=== PATIENT | female | born 1980 | race Caucasian/White ===

== ENCOUNTER 2018-02-26 11:12 | Outpatient (CLI) | payer MEDICAID, SELFPAY ==
--- NOTE | 2018-02-26 09:44 | DI.RAD_ITS ---
SYMPTOM/DIAGNOSIS: COUGH R05 CHEST X-RAY: PA and lateral. Comparison 04/15/16 The heart is normal in size. The lungs are clear. The mediastinal structures and pleura appear intact. CONCLUSION: Normal chest.
== END 2018-02-26 11:32 ==
PROVIDERS: PCP Family Medicine; Visit Provider Nurse Practitioner Family
DX: R05 Cough (principal)
CPT/HCPCS: 71046

== ENCOUNTER 2018-03-06 01:37 | Outpatient (CLI) | payer MEDICAID, SELFPAY ==
--- NOTE | 2018-03-06 09:10 | DI.CT_ITS ---
SYMPTOM/DIAGNOSIS: RLQ ABD PAIN, ? STONE, R10.[address]: Scarring or atelectasis is seen in the lung bases. Lack of IV contrast does limit evaluation of the abdominal and pelvic organs. There is diffuse decreased attenuation of the liver consistent with fatty infiltration. The patient is status post cholecystectomy. No biliary ductal dilatation is present. The unenhanced pancreas, spleen and adrenal glands are unremarkable. The kidneys show no evidence of nephrolithiasis or hydronephrosis. The urinary bladder is intact. The reproductive organs are unremarkable. There is mild atherosclerosis of the abdominal aorta but no aneurysmal dilatation is present. No significant abdominal or pelvic adenopathy , ascites or pneumoperitoneum is seen. The bowel shows no evidence of obstruction or inflammation. No findings to suggest an acute appendicitis are present. Mild age appropriate degenerative changes are seen in the spine. IMPRESSION: 1. No evidence of nephrolithiasis or obstructive uropathy. 2. Hepatic steatosis. 3. Status post cholecystectomy.
== END 2018-03-06 01:57 ==
PROVIDERS: PCP Family Medicine; Visit Provider Nurse Practitioner Family
DX: R10.31 Right lower quadrant pain (principal); K76.0 Fatty (change of) liver, not elsewhere classified; Z90.49 Acquired absence of other specified parts of digestive tract
CPT/HCPCS: 74176

== ENCOUNTER 2018-05-10 10:26 | Outpatient (REF) | payer MEDICAID, SELFPAY ==
[2018-05-10 12:36] LABS: HCT 42.1 % (36.0-46.0); HGB 13.2 g/dL (12.0-15.5); Mean Corp. HGB Concentration 31.4 g/dL (32.0-36.0); Mean Corpuscular Hemoglobin 26.2 pg (27.0-33.0); Mean Corpuscular Volume 83.5 fL (80-95); Mean Platelet Volume 13.3 fL (8.0-11.0); Platelet Count 282 x1000/uL (130-400); RBC 5.04 m/cumm (4.00-5.20); RBC Distribution Width 14.6 % (11.7-14.6); White Blood Cell Count 10.93 k/cumm (4.4-10.8)
[2018-05-10 12:56] LABS: TSH (W/Ref FT4) 1.87 uIU/mL (0.358-3.74)
[2018-05-10 14:09] LABS: Hemoglobin A1C 6.6 % (4.5-6.2)
== END 2018-05-10 10:46 ==
LOC: NCHCN 10:26
PROVIDERS: PCP Family Medicine; Visit Provider Family Medicine
DX: R73.03 Prediabetes (principal); R63.5 Abnormal weight gain; R53.83 Other fatigue
CPT/HCPCS: 85027; 83036; 84443

== ENCOUNTER 2018-05-10 13:02 | Emergency (ER) | payer MEDICAID, SELFPAY ==
[2018-05-10] VITALS (27 sets, daily range): BP systolic 128–158; BP diastolic 69–103; PULSE 79–116; RESP 12–23; TEMP 36.7; O2SAT 90–97
--- NOTE | 2018-05-10 13:22 | ED.GENADUL_ITS ---
Discharge Plan Disposition Patient Disposition: HOME Condition: Good Discharge Details Chief Complaint: Chest Pain Clinical Impression: Migraine, Hypertension Reason For Visit: [place]ET[place] Primary Care Provider: Irma Caldwell ED Provider: Chandu Urbina Home Meds and New Rx's Prescriptions: No Action ProAir HFA 200 PUFF HFA aerosol inhaler 2 puff Inhalation Q4H PRN PRNQty: 1 RF: 0 inhalational spacing device [AeroChamber Plus Z Stat Sm Msk] 1 EACH spacer 1 ea Miscellaneous Q4H PRN PRNQty: 1 RF: 0 Eliquis 5 mg Tablet 5 mg PO BID RF: 0 metformin 500 mg Tablet 500 mg PO BID RF: 0 sertraline 50 mg Tablet 50 mg PO DAILY RF: 0 Discharge Instructions Instructions: Hypertension (ED) Additional Instructions: Please take your antihypertensive medication as directed. If you notice any worsening of your symptoms, or any new symptoms such as vomiting, diarrhea, fever, chills, shortness of breath, chest pain, numbness, weakness, or fainting , please return immediately to the emergency department for reevaluation. Please follow up with your primary care provider as soon as possible for reassessment and reevaluation. As always, it was a pleasure participating in your medical care today. Referrals: Irma Caldwell MD [Primary Care Provider] - Medical Decision Making This is a 37-year-old female with a past medical history of pulmonary embolism after who takes Eliquis, as well as hypertension that she has not yet been started on blood pressure medication for. She presents today for headache, which is not the worst headache of her life. She denies any red flags concerning for meningitis, intracranial aneurysm. No thunderclap component, no concerning historical or family history, no neck pain or neck stiffness. With clinical symptoms that are inconsistent with ruptured intracranial aneurysm. She has normal neurologic exam as well. She was moderately hypertensive at her PCP, and on EMS arrival. She was given nitroglycerin which improved her subsequent chest pain, but did not resolve her headache. Because of the patient's history there is concern for repeat or worsening pulmonary embolism. With the patient's persistent cough differential does include pneumonia or bronchitis as well. This may be stress or anxiety related, however cardiac is also in the differential. Feel that this is a lower likelihood with her young age, she does have risk factors of hypertension diabetes and obesity. We will perform a cardiac workup, evaluate for PE, treat her headache, and treat her blood pressure. 3 PM On reassessment after 10mg of labetolol the patient's blood pressure has normalized, her headache is completely resolved, and she still remains chest pain-free. Vital signs are certainly reassuring. I feel that the patient's chest pain is most likely blood pressure related and less likely cardiac related. Out of an abundance of precaution though we will still get a repeat troponin and a repeat EKG. 5:23 PM Patient's repeat troponin is normal, repeat EKG is benign with no abnormalities compared to prior. No evidence of STEMI or ST depressions. Patient's symptoms still remain completely resolved and she feels much better. CT angios negative for any evidence of pulmonary embolism. No signs of abnormality on CT scan. Blood pressure is normalized with a single dose of labetalol. Headache is compl etely resolved after migraine cocktail. I did discuss the patient potential observation and serial troponins versus discharge and the patient is requesting discharge. I feel that cardiac etiology is extremely unlikely given her age, heart score in the low risk category, and her symptoms clinically inconsistent with ACS. I feel her symptoms are mainly related to blood pressure and migraine headache. Discharge patient will be discharged home with close follow-up with her PCP. She has antihypertensives prescribed already and they are filled in the pharmacy. I have extensively reviewed the treatment plan and discharge instructions with the patient and their family. I have addressed all patient concerns at this time. The patient and family was made aware of what symptoms to monitor for that would warrant a return to the emergency department. Discussed the plan with the patient and family, they demonstrate verbal understanding and agreement with our assessment and plan at this time. CT SCAN OF THE CHEST: CT angiography was performed with multi slice acquisition and multi planar and 3D reconstruction. CT scan of the chest was performed according to the pulmonary embolus protocol. The thoracic aorta is of normal caliber. No evidence of dissection or aneurysm is seen. There is no evidence of a pulmonary embolus. The heart size is within normal limits. No significant pericardial effusion is seen. No evidence of right ventricular dysfunction is present. No mediastinal or hilar adenopathy, pleural effusion or pneumothorax is identified. No focal consolidating infiltra ibis are seen in the lungs. The tracheobronchial tree is unremarkable. Upper abdominal images show diffuse decreased attenuation of the liver consistent with fatty infiltration. No acute osseous abnormality is identified. IMPRESSION: No evidence of a pulmonary embolus, thoracic aortic dissection or aneurysm. EKG 13: 12 Rate 100, intervals normal, sinus rhythm, no ST elevations or depressions, inverted T wave in V1 and lead III, Q waves present in lead III as well. No other significant abnormalities. EKG 17: 05 Rate 106, sinus tachycardia, intervals normal, no significant ST elevations or depressions, inverted T waves in V1, small Q wave in lead III with an inverted T wave in lead III. No other abnormalities. No acute changes. HPI General Date/Time Provider Initiated Documentation: 05/10/18 13:16 . HPI Narrative: This is a 37-year-old female with past medical history of tubal ligation, hypertension, diabetes, asthma pulmonary embolism after , unmedicated hypertension, asthma, who presents today for evaluation of hypertension, headache, chest pain some shortness of breath. Patient states that early this morning she woke up with a mild headache, which throughout the day has gradually worsened. She did check her blood pressure this morning and noticed that it was elevated. She went to see her family doctor later in the day, where they were actually going to stop her Eliquis for her PE that she had 6 months ago, and add lisinopril for control of her blood pressure. While there she developed chest pain, mild shortness of breath, slight worsening of the headache. Because of the symptoms the patient was then brought by EMS to the emergency department for further evaluation. She was given aspirin and nitroglycerin by EMS and had mild to complete improvement of her chest pain. Blood pressure somewhat improved after administration of nitroglycerin as well. Also of note the patient does state that she has had a persistent cough for the last few months with occasional productive sputum, however she denies any hemoptysis. In regards to the patient's headache she describes it is moderate and achy, over her entire head, she denies any eye pain, vision changes, or neck pain. The patient denies any history of cardiac disease, family history of cardiac disease, tobacco abuse, or high cholesterol. The patient denies any headache red flags of worst headache of life, thunderclap headache, neck pain, fever, chills, concerning family history of polycystic kidney disease, Marfan syndrome, Abimbola-Danlos syndrome, abdominal aortic aneurysm, aortic dissection, or intracranial aneurysm. Patient states that she has been taking her Eliquis as directed. She denies any recent long trips or surgeries. Patient states that today's symptoms feel atypical from her initial symptoms when she had a pulmonary embolism. No other complaints or modifying factors at this time. Related Data Home Medications Medication Instructions Recorded Confirmed ProAir HFA 2 puff INHALATION Q4H PRN PRN #1 04/15/16 05/10/18 inh inhalational spacing device #1 spacer 04/15/16 [Aerochamber Z-Stat Plus] apixaban [Eliquis] 5 mg PO BID 05/10/18 05/10/18 metformin 500 mg PO BID 05/10/18 05/10/18 sertraline 50 mg PO DAILY 05/10/18 05/10/18 Previous Rx's Medication Instructions Recorded ProAir HFA 2 puff INHALATION Q4H PRN PRN #1 04/15/16 inh inhalational spacing device #1 spacer 04/15/16 [Aerochamber Z-Stat Plus] Allergies Allergy/AdvReac Type Severity Reaction Status Date / Time No Known Allergies Allergy Unverified 05/10/18 13:20 General Stated Complaint: Chest Pain HEIDI: 2 Review of Systems Review of Systems All systems reviewed & are unremarkable except as noted in HPI and below PFSH Social History Smoking and Tabacco status: Never Exam Narrative Exam Narrative: 1.Const: Well-nourished, Well-developed, appearing stated age 2.Eyes: PERRL, no conjunctival injection, and symmetrical lids. 3.ENT: Atraumatic external nose and ears. Moist MM. Neck: Symmetric, trachea midline, No thyromegaly. Patient demonstrates good movement of cervical neck. There is no nuchal rigidity, no nuchal tenderness. Patient is able to flex the neck without any difficulty or significant pain. Negative Kernig's and Brudzinski sign. 4.CVS: +S1/S2, No murmurs or gallops. Peripheral pulses 2+ and equal in all extremities. Brisk capillary refill in all extremities. 5.RESP: Unlabored respiratory effort. Clear to auscultation bilaterally. No wheezes rales or rhonchi 6.GI: Soft, Nontender/Nondistended, No hepatosplenomegaly. No guarding or rebound. 7.MSK: Normocephalic/Atraumatic, Extremities w/o deformity or ttp No cyanosis or clubbing, Normal movement of all extremities, no calf tenderness. 8.Skin: Warm, Dry. No rashes or lesions. 9.Neuro: radiologist physician II-XII grossly intact. Sensation grossly intact, no focal neurologic deficits. All 6 cardinal planes of vision are fully intact. No evidence of rotatory or vertical nystagmus. The patient demonstrated a normal [id number], good dexterity. There was no evidence of dysdiadochokinesia. Patient was able to ambulate without difficulty. There was no wide-based gait. Romberg, and nuyl-lb-phqy are both normal on testing. Sensation was intact bilaterally as well as muscle strength bilaterally for all extremities. Patient was able to verbalize butter cup with no slurring, or miss pronunciation. 10.Psych: (AAO) x3. Appropriate mood and affect Course Vital Signs Temperature 36.7 C 05/10/18 13:06 Pulse 109 H 05/10/18 13:06 Respiratory Rate 18 05/10/18 13:06 Blood Pressure 158/103 H 05/10/18 13:06 Pulse Oximetry 95 05/10/18 13:06 Temperature 36.7 C 05/10/18 13:06 Temperature Source Skin 05/10/18 13:06 Pulse 109 H 05/10/18 13:06 Respiratory Rate 18 05/10/18 13:17 Respiratory Effort 05/10/18 13:17 Respiratory Depth Normal 05/10/18 13:17 Respiratory Pattern Normal 05/10/18 13:17 Blood Pressure 158/103 H 05/10/18 13:06 Pulse Oximetry 95 05/10/18 13:06 Oxygen Delivery Method Room Air 05/10/18 13:06 Oxygen Flow Rate 0 05/10/18 13:06 Pain Level 5 05/10/18 13:06 Comment 05/10/18 13:06
[2018-05-10 14:12] LABS: Abs Immature Grans 0.02 k/cumm (0.0-0.09); Absolute Basophil Count 0.04 k/cumm (0.0-0.2); Absolute Lymphocyte Count 3.07 k/cumm (1.2-3.4); Absolute Monocyte Count 0.63 k/cumm (0.11-0.7); Absolute Neutrophil Count 7.84 k/cumm (1.2-6.7); Basophils % 0.3; Eosinophils % 2.5; HCT 39.6 % (36.0-46.0); HGB 12.8 g/dL (12.0-15.5); Immature Grans % 0.2; Lymphocytes % 25.8; Mean Corp. HGB Concentration 32.3 g/dL (32.0-36.0); Mean Corpuscular Hemoglobin 26.8 pg (27.0-33.0); Mean Platelet Volume 12.7 fL (8.0-11.0); Monocytes % 5.3; Neutrophils % 65.9; Platelet Count 244 x1000/uL (130-400); RBC 4.77 m/cumm (4.00-5.20); RBC Distribution Width 14.4 % (11.7-14.6); White Blood Cell Count 11.89 k/cumm (4.4-10.8)
[2018-05-10 14:28] LABS: Prothrombin Time 10.2 sec (9.3-11.0)
[2018-05-10 14:36] LABS: ALT 30 U/L (12-78); AST 20 U/L (15-37); Albumin 3.2 g/dL (3.4-5.0); Alkaline Phosphatase 74 U/L (46-116); Anion Gap 11.6 mmol/L (3-11); BUN 8 mg/dL (7-18); Bilirubin, Total 0.2 mg/dL (0.2-1.0); CO2 25.4 mmol/L (21.0-32.0); CREATININE 0.72 mg/dL (0.55-1.02); Calcium 8.6 mg/dL (8.5-10.1); Chloride 102 mmol/L (98-107); Glucose 141 mg/dL (70-100); Potassium 3.8 mmol/L (3.5-5.1); Sodium 139 mmol/L (136-145); TSH (W/Ref FT4) 3.48 uIU/mL (0.358-3.74); Total Protein 7.9 g/dL (6.4-8.2); Troponin I < 0.02 ng/mL (0.00-0.06)
[2018-05-10] MEDS: Omnipaque 350 MG/ML 100 ML BTL IJ (15:01)
--- NOTE | 2018-05-10 15:03 | DI.CT_ITS ---
SYMPTOMS/DIAGNOSIS: H/O PE, NOW SHORTNESS OF BREATH, TACHYCARDIA, COUGH, CP CT SCAN OF THE CHEST: CT angiography was performed with multi slice acquisition and multi planar and 3D reconstruction. CT scan of the chest was performed according to the pulmonary embolus protocol. The thoracic aorta is of normal caliber. No evidence of dissection or aneurysm is seen. There is no evidence of a pulmonary embolus. The heart size is within normal limits. No significant pericardial effusion is seen. No evidence of right ventricular dysfunction is present. No mediastinal or hilar adenopathy, pleural effusion or pneumothorax is identified. No focal consolidating infiltrates are seen in the lungs. The tracheobronchial tree is unremarkable. Upper abdominal images show diffuse decreased attenuation of the liver consistent with fatty infiltration. No acute osseous abnormality is identified. IMPRESSION: No evidence of a pulmonary embolus, thoracic aortic dissection or aneurysm. The findings were discussed with Dr. Urbina of the Emergency Department on the date of the examination.
[2018-05-10 17:21] LABS: Troponin I < 0.02 ng/mL (0.00-0.06)
== END 2018-05-10 17:37 | disposition home or self-care (01) ==
PROVIDERS: Emergency Provider Student in an Organized Health Care Education/Training Program; PCP Family Medicine
DX: G43.909 Migraine, unspecified, not intractable, without status migrainosus (principal); I10 Essential (primary) hypertension; R00.0 Tachycardia, unspecified; Z79.01 Long term (current) use of anticoagulants
CPT/HCPCS: 36415; 71275; 80053; 85027; 93005; 96374; 96375; 99285; 83036; 84443; 84484; 85025; 85610; 85730; 93010; J1885; J3490

== ENCOUNTER 2018-06-01 15:35 | Observation (INO) | payer MEDICAID, SELFPAY ==
[2018-06-01] VITALS (33 sets, daily range): BP systolic 114–153; BP diastolic 64–100; PULSE 101–136; RESP 15–34; TEMP 36.2–37.1; O2SAT 94–98
--- NOTE | 2018-06-01 16:22 | DI.CT_ITS ---
SYMPTOM/DIAGNOSIS: TACHYCARDIAC, DIZZINESS, H/O PE PE CHEST CT: CT angiography was performed with multi slice acquisition and multi planar and 3D reconstruction. CT scan of the chest was performed according to the pulmonary embolus protocol. Comparison is made with 05/10/18. There is limited evaluation of the distal segmental branches of the pulmonary arteries. The main pulmonary artery, right and left pulmonary artery and proximal segmental branches show no evidence of a pulmonary embolus. The thoracic aorta is intact. No evidence of dissection or aneurysm. Heart size is within normal limits. No significant pericardial effusion is seen. No evidence of right ventricular dysfunction is present. No significant thoracic adenopathy, pleural effusion or pneumothorax is identified. The lungs show no infiltrates. The tracheobronchial tree is unremarkable. Upper abdominal images show diffuse decreased attenuation of the liver consistent with hepatic steatosis. No acute osseous abnormality is identified. Note is again made of right thyroid nodules which appear stable. The largest measures 2 cm. and is partially calcified. IMPRESSION: 1. Suboptimal examination for distal pulmonary artery evaluation. No gross evidence of a pulmonary embolus. 2. No evidence of aortic dissection or aneurysm. 3. Stable thyroid nodules.
--- NOTE | 2018-06-01 16:25 | W.ED.GENAD ---
Discharge Plan Disposition Patient Disposition: [facility] INPATIENT Condition: Serious Discharge Details Chief Complaint: Palpitatns Clinical Impression: Chest pain, Tachycardia Primary Care Provider: Irma Caldwell ED Provider: Otto Carrion Home Meds and New Rx's Prescriptions: No Action albuterol sulfate [ProAir HFA] 200 PUFF HFA aerosol inhaler 2 puff Inhalation Q4H PRN PRNQty: 1 RF: 0 inhalational spacing device [AeroChamber Plus Z Stat Sm Msk] 1 EACH spacer 1 ea Miscellaneous Q4H PRN PRNQty: 1 RF: 0 Eliquis 5 mg Tablet 5 mg PO BID RF: 0 metformin 500 mg Tablet 500 mg PO BID RF: 0 sertraline 50 mg Tablet 50 mg PO DAILY RF: 0 Medical Decision Making 16:30 --37-year-old female with history of pulmonary embolus him in the past, not anticoagulated, here with palpitations, tachycardic, with associated intermittent lightheadedness. She has had some pain in her right calf over the past two weeks and has some tenderness in her right calf Also of note, patient has had cough that is been persistent over the past few months, intermittently productive. ECG reviewed and interpreted by me: Sinus tachycardia 120 bpm, T wave inversions are noted in lead III and aVF, normal axis, no STEMI, nondiagnostic. Plan to obtain CT of the chest to assess for pulmonary embolism versus pneumonia. Consider thyroid dysfunction electrolyte ab normality We will give IV fluid bolus. -- CT interpreted by radiology: IMPRESSION: 1. Suboptimal evaluation for pulmonary emboli, however grossly there is no evidence of pulmonary emboli noted. 2. No other acute thoracic pathology. 3. Stable right thyroid lobe nodules merit further evaluation with ultrasound and a nonemergent setting if not already performed. 4. Other incidental findings as detailed above. 19:17 -- Labs reviewed nondiagnostic. Patient reassessed: persistently tachycardic and now have left upper chest ache. Initial trop neg. Plan to give asa, nitro SL. Plan to admit. Repeat ECG reviewed and interpreted by me: No significant change from prior EKG, no STEMI, nondiagnostic. 19:25 -- Spoke with Dr. Lawson who will admit the patient. He recommends holding heparin and trend trop. He requested bridging orders be placed to the floor. HPI General Mode of arrival: ambulatory. Date/Time Provider Initiated Documentation: 06/01/18 16:09. Limitations to Documentation: no limitations. Information obtained by: patient. HPI Narrative: 37-year-old female presents with chief complaint of palpitations. Patient notes sensation of heart racing that started this morning and has persisted. Symptoms are severe. No modifiers. She has associated lightheadedness intermittently today. Patient also notes that she has had cough times months that is been intermittently productive. Of note, patient has history of pulmonary embolus in the past, had been taking Eliquis for about 7 months and then was stopped on 05/10/2018. She is not currently anticoagulated. She also notes that she has had some discomfort in her right lower leg recently over the past couple weeks. Related Data Home Medications Medication Instructions Recorded Confirmed albuterol sulfate [ProAir HFA] 2 puff INHALATION Q4H PRN PRN #1 04/15/16 06/01/18 inh inhalational spacing device #1 spacer 04/15/16 [Aerochamber Z-Stat Plus] apixaban [Eliquis] 5 mg PO BID 05/10/18 05/10/18 metformin 500 mg PO BID 05/10/18 06/01/18 sertraline 50 mg PO DAILY 05/10/18 05/10/18 Previous Rx's Medication Instructions Recorded albuterol sulfate [ProAir HFA] 2 puff INHALATION Q4H PRN PRN #1 04/15/16 inh inhalational spacing device #1 spacer 04/15/16 [Aerochamber Z-Stat Plus] Allergies Allergy/AdvReac Type Severity Reaction Status Date / Time lisinopril Allergy Hives Unverified 06/01/18 15:46 losartan Allergy Hives Unverified 06/01/18 15:46 General Stated Complaint: Palpitatns HEIDI: 2 Review of Systems Review of Systems All systems reviewed & are unremarkable except as noted in HPI and below Constitutional Denies fever(s) Cardiovascular Reports chest pain and Denies dyspnea Respiratory Reports cough and Denies dyspnea PFSH Medical History Pulmonary embolism (Chronic) Type 2 diabetes mellitus (Chronic) Social History Smoking and Tabacco status: Never Exam Const General: cooperative and no acute distress HENMT Head: normocephalic Mouth: moist mucous membranes Eyes Conjunctivae: normal conjunctivae Sclera: normal sclerae Neck Neck: trachea midline and supple Thyroid: thyroid normal Resp Auscultation: clear to auscultation bilaterally, no rales, no rhonchi and no wheezes Cardio Jugular venous pressure: no JVD Rate: tachycardic Rhythm: regular rhythm GI Palpation: soft, not firm, no guarding, no masses, not rigid and nontender Skin General skin exam: no rashes or lesions noted Neuro General: alert, awake, oriented x3 and tone normal Extrem General: calf tenderness on the right (mild) and no edema Psych Appearance: grossly normal Course Vital Signs Temperature 36.2 C L 06/01/18 15:41 Pulse 136 H 06/01/18 15:41 Respiratory Rate 18 06/01/18 15:41 Blood Pressure 153/100 H 06/01/18 15:41 Pulse Oximetry 95 06/01/18 15:41 Temperature 36.2 C L 06/01/18 15:41 Temperature Source Temporal Artery Scan 06/01/18 15:41 Pulse 136 H 06/01/18 15:41 Respiratory Rate 18 06/01/18 15:41 Respiratory Effort Non-Labored 06/01/18 15:44 Blood Pressure 153/100 H 06/01/18 15:41 Blood Pressure Position Sitting 06/01/18 15:41 Pulse Oximetry 95 06/01/18 15:41 Oxygen Delivery Method Room Air 06/01/18 15:41 Oxygen Flow Rate 0 06/01/18 15:41 Pain Level 0 06/01/18 15:41
--- NOTE | 2018-06-01 16:33 | ED.GENADUL_ITS ---
Discharge Plan Disposition Patient Disposition: [facility] INPATIENT Condition: Serious Discharge Details Chief Complaint: Palpitatns Clinical Impression: Chest pain, Tachycardia Primary Care Provider: Irma Caldwell ED Provider: Otto Carrion Home Meds and New Rx's Prescriptions: No Action albuterol sulfate [ProAir HFA] 200 PUFF HFA aerosol inhaler 2 puff Inhalation Q4H PRN PRNQty: 1 RF: 0 inhalational spacing device [AeroChamber Plus Z Stat Sm Msk] 1 EACH spacer 1 ea Miscellaneous Q4H PRN PRNQty: 1 RF: 0 Eliquis 5 mg Tablet 5 mg PO BID RF: 0 metformin 500 mg Tablet 500 mg PO BID RF: 0 sertraline 50 mg Tablet 50 mg PO DAILY RF: 0 Medical Decision Making 16:30 --37-year-old female with history of pulmonary embolus him in the past, not anticoagulated, here with palpitations, tachycardic, with associated int ermittent lightheadedness. She has had some pain in her right calf over the past two weeks and has some tenderness in her right calf Also of note, patient has had cough that is been persistent over the past few months, intermittently productive. ECG reviewed and interpreted by me: Sinus tachycardia 120 bpm, T wave inversions are noted in lead III and aVF, normal axis, no STEMI, nondiagnostic. Plan to obtain CT of the chest to assess for pulmonary embolism versus pneumonia. Consider thyroid dysfunction electrolyte ab normality We will give IV fluid bolus. -- CT interpreted by radiology: IMPRESSION: 1. Suboptimal evaluation for pulmonary emboli, however grossly there is no evidence of pulmonary emboli noted. 2. No other acute thoracic pathology. 3. Stable right thyroid lobe nodules merit further evaluation with ultrasound and a nonemergent setting if not already performed. 4. Other incidental findings as detailed above. 19:17 -- Labs reviewed nondiagnostic. Patient reassessed: persistently tachycardic and now have left upper chest ache. Initial trop neg. Plan to give asa, nitro SL. Plan to admit. Repeat ECG reviewed and interpreted by me: No significant change from prior EKG, no STEMI, nondiagnostic. 19:25 -- Spoke with Dr. Lawson who will admit the patient. He recommends holding heparin and trend trop. He requested bridging orders be placed to the floor. HPI General Mode of arrival: ambulatory . Date/Time Provider Initiated Documentation: 06/01/18 16:09 . Limitations to Documentation: no limitations . Information obtained by: patient . HPI Narrative: 37-year-old female presents with chief complaint of palpitations. Patient notes sensation of heart racing that started this morning and has persisted. Symptoms are severe. No modifiers. She has associated lightheadedness intermittently today. Patient also notes that she has had cough times months that is been intermittently productive. Of note, patient has history of pulmonary embolus in the past, had been taking Eliquis for about 7 months and then was stopped on 05/10/2018. She is not currently anticoagulated. She also notes that she has had some discomfort in her right lower leg recently over the past couple weeks. Related Data Home Medications Medication Instructions Recorded Confirmed albuterol sulfate [ProAir HFA] 2 puff INHALATION Q4H PRN PRN #1 04/15/16 06/01/18 inh inhalational spacing device #1 spacer 04/15/16 [Aerochamber Z-Stat Plus] apixaban [Eliquis] 5 mg PO BID 05/10/18 05/10/18 metformin 500 mg PO BID 05/10/18 06/01/18 sertraline 50 mg PO DAILY 05/10/18 05/10/18 Previous Rx's Medication Instructions Recorded albuterol sulfate [ProAir HFA] 2 puff INHALATION Q4H PRN PRN #1 04/15/16 inh inhalational spacing device #1 spacer 04/15/16 [Aerochamber Z-Stat Plus] Allergies Allergy/AdvReac Type Severity Reaction Status Date / Time lisinopril Allergy Hives Unverified 06/01/18 15:46 losartan Allergy Hives Unverified 06/01/18 15:46 General Stated Complaint: Palpitatns HEIDI: 2 Review of Systems Review of Systems All systems reviewed & are unremarkable except as noted in HPI and below Constitutional Denies fever(s) Cardiovascular Reports chest pain and Denies dyspnea Respiratory Reports cough and Denies dyspnea PFSH Medical History Pulmonary embolism (Chronic) Type 2 diabetes mellitus (Chronic) Social History Smoking and Tabacco status: Never Exam Const General: cooperative and no acute distress HENMT Head: normocephalic Mouth: moist mucous membranes Eyes Conjunctivae: normal conjunctivae Sclera: normal sclerae Neck Neck: trachea midline and supple Thyroid: thyroid normal Resp Auscultation: clear to auscultation bilaterally, no rales, no rhonchi and no wheezes Cardio Jugular venous pressure: no JVD Rate: tachycardic Rhythm: regular rhythm GI Palpation: soft, not firm, no guarding, no masses, not rigid and nontender Skin General skin exam: no rashes or lesions noted Neuro General: alert, awake, oriented x3 and tone normal Extrem General: calf tenderness on the right (mild) and no edema Psych Appearance: grossly normal Course Vital Signs Temperature 36.2 C L 06/01/18 15:41 Pulse 136 H 06/01/18 15:41 Respiratory Rate 18 06/01/18 15:41 Blood Pressure 153/100 H 06/01/18 15:41 Pulse Oximetry 95 06/01/18 15:41 Temperature 36.2 C L 06/01/18 15:41 Temperature Source Temporal Artery Scan 06/01/18 15:41 Pulse 136 H 06/01/18 15:41 Respiratory Rate 18 06/01/18 15:41 Respiratory Effort Non-Labored 06/01/18 15:44 Blood Pressure 153/100 H 06/01/18 15:41 Blood Pressure Position Sitting 06/01/18 15:41 Pulse Oximetry 95 06/01/18 15:41 Oxygen Delivery Method Room Air 06/01/18 15:41 Oxygen Flow Rate 0 06/01/18 15:41 Pain Level 0 06/01/18 15:41
[2018-06-01 16:36] LABS: Abs Immature Grans 0.04 k/cumm (0.0-0.09); Absolute Basophil Count 0.08 k/cumm (0.0-0.2); Absolute Eosinophil Count 0.71 k/cumm (0.0-0.7); Absolute Lymphocyte Count 5.26 k/cumm (1.2-3.4); Absolute Monocyte Count 0.85 k/cumm (0.11-0.7); Absolute Neutrophil Count 8.22 k/cumm (1.2-6.7); Basophils % 0.5; Eosinophils % 4.7; HCT 42.7 % (36.0-46.0); HGB 13.9 g/dL (12.0-15.5); Immature Grans % 0.3; Lymphocytes % 34.7; Mean Corp. HGB Concentration 32.6 g/dL (32.0-36.0); Mean Corpuscular Hemoglobin 26.9 pg (27.0-33.0); Mean Corpuscular Volume 82.6 fL (80-95); Mean Platelet Volume 12.6 fL (8.0-11.0); Monocytes % 5.6; Neutrophils % 54.2; Platelet Count 309 x1000/uL (130-400); RBC 5.17 m/cumm (4.00-5.20); RBC Distribution Width 14.9 % (11.7-14.6); White Blood Cell Count 15.16 k/cumm (4.4-10.8)
[2018-06-01 16:53] LABS: ALT 46 U/L (12-78); AST 25 U/L (15-37); Albumin 3.7 g/dL (3.4-5.0); Alkaline Phosphatase 73 U/L (46-116); BUN 10 mg/dL (7-18); Bilirubin, Total 0.3 mg/dL (0.2-1.0); CREATININE 0.76 mg/dL (0.55-1.02); Calcium 9.5 mg/dL (8.5-10.1); Chloride 100 mmol/L (98-107); Glucose 122 mg/dL (70-100); Magnesium 2.1 mg/dL (1.8-2.4); Potassium 3.8 mmol/L (3.5-5.1); Sodium 138 mmol/L (136-145); Total Protein 8.3 g/dL (6.4-8.2)
[2018-06-01 16:54] LABS: Troponin I < 0.02 ng/mL (0.00-0.06)
[2018-06-01] MEDS: Lactated Ringers 1,000 ML 1000 ML IV ×2 (16:58→18:33)
[2018-06-01 17:04] LABS: Diff Comment Diff Reviewed; RBC Morphology Normal; TSH (W/Ref FT4) 2.36 uIU/mL (0.358-3.74)
[2018-06-01] MEDS: Omnipaque 350 MG/ML 100 ML BTL IJ (17:11)
[2018-06-01] MEDS: Normal Saline Flush 10 ML SYR IVP ×2 (17:18→17:22)
--- NOTE | 2018-06-01 17:47 | DI.VRAD_ITS ---
EXAM: CT Angiography Chest With Contrast EXAM DATE/TIME: 06/01/2018 4:24 PM CLINICAL HISTORY: 37 years old, female; Signs and symptoms; Other: Tachycardic, dizzy pe in past, not anticoagulated TECHNIQUE: Axial computed tomographic angiography images of the chest with intravenous contrast using CT angiography protocol. All CT scans at this facility use at least one of these dose optimization techniques: automated exposure control; mA and/or kV adjustment per patient size (includes targeted exams where dose is matched to clinical indication); or iterative reconstruction. Coronal and sagittal reformatted images were created and reviewed. MIP reconstructed images were created and reviewed. CONTRAST: Contrast Material: 85 ml of Omnipaque 350; Contrast Route: IV COMPARISON: CT chest PE CTA 05/10/2018 3:00 PM FINDINGS: Pulmonary arteries: Suboptimal contrast bolus for evaluation of pulmonary emboli. Grossly, no acute emboli noted within the main pulmonary arteries or proximal segmental branches. Distal segmental branches are not confidently evaluated. Aorta: Normal. No aortic aneurysm. No aortic dissection. Thyroid: Stable partially calcified 2 cm right thyroid lobe nodule. Stable noncalcified 1.6 cm hypodense right thyroid lobe nodule. Lungs: No acute interstitial or airspace disease noted in the lungs. Pleural space: Normal. No pneumothorax. No pleural effusion. Heart: Heart is normal in size and configuration. No pericardial thickening or effusion. There is a punctate atherosclerotic calcification noted in the distal LAD. Liver: Diffuse hepatic steatosis is noted. Upper abdomen: Visualized upper abdominal organs otherwise unremarkable. Lymph nodes: Unremarkable. No enlarged lymph nodes. Bones/joints: Unremarkable. No acute fracture. Soft tissues: Unremarkable. IMPRESSION: 1. Suboptimal evaluation for pulmonary emboli, however grossly there is no evidence of pulmonary emboli noted. 2. No other acute thoracic pathology. 3. Stable right thyroid lobe nodules merit further evaluation with ultrasound and a nonemergent setting if not already performed. 4. Other incidental findings as detailed above. Dictated and Authenticated by: Leif Colby MD. Ordering:EDELMIRA Menjivar MD
--- NOTE | 2018-06-01 19:02 | NUR.NOTE ---
patient reports left achy chest pain Nursing Note:
[2018-06-01] MEDS: Aspirin 325 MG TAB PO (19:26)
--- NOTE | 2018-06-01 20:02 | NUR.NOTE ---
patient's chest pain 0/10 after two nitro Nursing Note:
--- NOTE | 2018-06-01 20:13 | NUR.NOTE ---
patient ambulated to restroom, denies chest pain Nursing Note:
[2018-06-01 21:26] LABS: Troponin I < 0.02 ng/mL (0.00-0.06)
--- NOTE | 2018-06-01 23:18 | HPE_ITS ---
Date of service: 06/01/18 Time of Service: 23:18 Assessment and Plan (1) Atypical chest pain: Start date: 06/01/18 Current visit: Yes Status: Acute This is a 37-year-old lady with a several day history of not feeling well with a viral URI and increased cough and the day of admission having palpitations at work thinking that her blood pressure was elevated. When she checked her blood pressure at work it was normal but her heart rate was fast. She reported to the ED for evaluation and during her ED visit she was evaluated for possible recurrent PE with a history of pulmonary emboli after a stat C- section with her last child. She has been off Eliquis for the last several weeks. She ruled out for any acute PE or significant respiratory problem and he did have some chest pressure which responded to nitroglycerin sublingually. She does have chronic reflux and with her discomfort not being typical angina or exertional, it was atypical chest pain which deserved cardiac monitoring with serial cardiac enzymes prior to further outpatient evaluation of her cardiac status. She did have tachycardia in the ED and though she states that she was not anxious, she was not feeling well with low-grade fever recently. She tested negative for flu. She recently also had to stop lisinopril and ARB's because of side effects. She is diabetic and not on statins with history of hypertension as risk factors for CAD. She will be observed overnight with telemetry and serial cardiac enzymes with further cardiac evaluation as an outpatient if this observation is unrevealing. She should also consider a statin with close to monitoring of her lipid profile and weight loss with more routine aerobic exercise. 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 She will be placed on a PPI during her hospital stay and metoprolol will be started for heart rate control and blood pressure control since she is allergic to VIJAY inhibitors and ARB's. (2) Tachycardia: Current visit: Yes Status: Acute Start metoprolol 25 mg twice a day and monitor on telemetry overnight. Long-term more routine aerobic exercise may be helpful along with stress reduction. (3) Viral URI with cough: Current visit: Yes Status: Acute Symptomatic treatment with albuterol nebulizers as needed. Tylenol for fever and pain. (4) Mild intermittent asthma in adult without complication: Current visit: Yes Status: Chronic Patient is usually on Pro Air inhaler as needed and will be treated with albuterol nebulizer treatments as needed during this hospital stay. (5) Diabetes mellitus: Current visit: Yes Status: Chronic This problem is well controlled on metformin alone but the patient could do better with lifestyle changes. Follow-up as an outpatient. This does increase her risk of advancing cardiovascular disease. History of Present Illness Chief Complaint: Palpitations with intermittent chest pressure associated with cough Narrative: This is a 37-year-old lady who has had 7 children ranging in ages less than a year to 14 years of age who works at a local nursing facility. She had a pulmonary embolus after a stat for her last child and was on Eliquis for up to 6 months having stopped several weeks ago. She recently began to have upper respiratory symptoms with a cough and mild fever and occasional production of sputum. She does not have the flu with a negative screen upon admission today. She presented to the ED mostly because of her palpitations and thought that her blood pressure was elevated having been taken off her VIJAY in hibitor and ARB because of side effects. She is diabetic fairly well controlled. She also was on sertraline in the past but is off this as well. She does not think that she is under increased stress though she does a very stressful life. She does not exercise routinely. Her appetite is been good and she has had no GI complaints. She did complain of some leg and calf swelling and pain in the ED and CT of the chest with PE protocol did not reveal any gross pulmonary emboli. With her chest discomfort in the ED she did receive 2 nitroglycerin which did make her chest pain on the left side go away but it was not exertional chest pain and was more of a pressure with her coughing. She does have a history of reflux disease and is not on anything more than TUMS. The chest wall was not tender to palpation. Because of her complex of symptoms she was admitted for observation overnight with serial cardiac enzymes to be performed and observation on telemetry. Also she will be started on metoprolol for blood pressure and tachycardia. She is not on a statin and this should be reevaluated with fasting lipids as an outpatient with her PMD. She may require cardiac stress testing before discharge after observation if labs are unrevealing. Her initial labs as stated were not revealing for any acute coronary syndrome, complicated respiratory infection or metabolite abnormality with her TSH also been normal. At the time I saw the patient she was not having chest pressure or palpitations at rest in bed. Review of Systems Review of Systems 13 point review of systems otherwise unrevealing or stable and as per HPI. [facility] Medical History Pulmonary embolism (Chronic) Type 2 diabetes mellitus (Chronic) Social History Smoking and Tabacco status: Never Meds Home Medications Medication Instructions Recorded Confirmed Type albuterol sulfate [ProAir HFA] 2 puff INHALATION Q4H PRN PRN #1 04/15/16 06/01/18 Rx inh inhalational spacing device #1 spacer 04/15/16 06/01/18 Rx [Aerochamber Z-Stat Plus] metformin 500 mg PO BID 05/10/18 06/01/18 History Allergies Allergy/AdvReac Type Severity Reaction Status Date / Time lisinopril Allergy Hives Unverified 06/01/18 15:46 losartan Allergy Hives Unverified 06/01/18 15:46 Exam Narrative Exam Narrative: General: Patient is tall and moderately obese in no acute distress with slightly flattened affect but good eye contact. She is alert and oriented x3. HEENT: Normocephalic, oropharynx slightly erythematous but clear without exudates and moist mucosa, eyes with sclera anicteric and pupils equal and reactive to light symmetrically with extraocular movement intact. Ears are normal. Neck: Supple without JVD. No palpable thyromegaly (of note CT scan did show stable right thyroid nodules). Back: Stooped posture without CVA tenderness. Lungs: Clear to auscultation and percussion with bronchovesicular breath sounds diffusely but no focalizing rales, wheezing or rhonchi. There is slight upper airway noise with cough. Heart: Regular rate and rhythm without murmurs or gallops appreciated. Breasts: Exam deferred. Chest: Nontender to palpation over the sternum and anterior chest wall. Abdomen: Slightly obese contour, soft and nontender to palpation. No palpable hepatosplenomegaly. Genitalia and rectal: Deferred. Extremities: No clubbing, cyanosis or edema. Negative Homans sign bilaterally. No calf swelling or palpable cords. Skin: Pale, warm and dry. No rashes noted. Neuro: Motor grossly intact, cranial nerves II through XII grossly intact. Psych: Patient does appear slightly anxious with flat affect as mentioned but no depressed mood. Memory is intact. Results Imaging Imaging Studies: CT Angiography Chest With Contrast EXAM DATE/TIME: 06/01/2018 4:24 PM CLINICAL HISTORY: 37 years old, female; Signs and symptoms; Other: Tachycardic, dizzy pe in past, not anticoagulated TECHNIQUE: Axial computed tomographic angiography images of the chest with intravenous contrast using CT angiography protocol. All CT scans at this facility use at least one of these dose optimization techniques: automated exposure control; mA and/or kV adjustment per patient size (includes targeted exams where dose is matched to clinical indication); or iterative reconstruction. Coronal and sagittal reformatted images were created and reviewed. MIP reconstructed images were created and reviewed. CONTRAST: Contrast Material: 85 ml of Omnipaque 350; Contrast Route: IV COMPARISON: CT chest PE CTA 05/10/2018 3:00 PM FINDINGS: Pulmonary arteries: Suboptimal contrast bolus for evaluation of pulmonary emboli. Grossly, no acute emboli noted within the main pulmonary arteries or proximal segmental branches. Distal segmental branches are not confidently evaluated. Aorta: Normal. No aortic aneurysm. No aortic dissection. Thyroid: Stable partially calcified 2 cm right thyroid lobe nodule. Stable noncalcified 1.6 cm hypodense right thyroid lobe nodule. Lungs: No acute interstitial or airspace disease noted in the lungs. Pleural space: Normal. No pneumothorax. No pleural effusion. Heart: Heart is normal in size and configuration. No pericardial thickening or effusion. There is a punctate atherosclerotic calcification noted in the distal LAD. Liver: Diffuse hepatic steatosis is noted. Upper abdomen: Visualized upper abdominal organs otherwise unremarkable. Lymph nodes: Unremarkable. No enlarged lymph nodes. Bones/joints: Unremarkable. No acute fracture. Soft tissues: Unremarkable. IMPRESSION: 1. Suboptimal evaluation for pulmonary emboli, however grossly there is no evidence of pulmonary emboli noted. 2. No other acute thoracic pathology. 3. Stable right thyroid lobe nodules merit further evaluation with ultrasound and a nonemergent setting if not already performed. 4. Other incidental findings as detailed above. Dictated and Authenticated by: Leif Colby MD. Labs : 06/01/18 16:10 06/01/18 16:10 Laboratory Results - last 24 hr 06/01/18 06/01/18 06/01/18 16:10 16:10 16:10 WBC 15.16 H RBC 5.17 Hgb 13.9 Hct 42.7 MCV 82.6 MCH 26.9 L MCHC 32.6 RDW 14.9 H Plt Count 309 MPV 12.6 H Immature Gran % 0.3 Neutrophils % 54.2 Lymphocytes % 34.7 Monocytes % 5.6 Eosinophils % 4.7 Basophils % 0.5 Absolute Neutrophils 8.22 H Absolute Lymphocytes 5.26 H Absolute Monocytes 0.85 H Absolute Eosinophils 0.71 H Absolute Basophils 0.08 Differential Comment Diff reviewed RBC Morphology Normal Sodium 138 Potassium 3.8 Chloride 100 Carbon Dioxide 27.0 Anion Gap 11.0 BUN 10 Creatinine 0.76 Estimated GFR/1.73 m2 >= 60.00 Glucose 122 H Calcium 9.5 Magnesium 2.1 Total Bilirubin 0.3 AST 25 ALT 46 Alkaline Phosphatase 73 Troponin I < 0.02 Total Protein 8.3 H Albumin 3.7 TSH 2.36 06/01/18 20:32 WBC RBC Hgb Hct MCV MCH MCHC RDW Plt Count MPV Immature Gran % Neutrophils % Lymphocytes % Monocytes % Eosinophils % Basophils % Absolute Neutrophils Absolute Lymphocytes Absolute Monocytes Absolute Eosinophils Absolute Basophils Differential Comment RBC Morphology Sodium Potassium Chloride Carbon Dioxide Anion Gap BUN Creatinine Estimated GFR/1.73 m2 Glucose Calcium Magnesium Total Bilirubin AST ALT Alkaline Phosphatase Troponin I < 0.02 Total Protein Albumin TSH Last Vital Signs Temp 36.6 C 06/01/18 21:27 Pulse 108 H 06/01/18 21:27 Resp 17 06/01/18 21:27 BP 124/86 06/01/18 21:27 Pulse Ox 98 06/01/18 21:27
[2018-06-01 23:30] LABS: Bilirubin Negative (Negative); Blood Negative (Negative); Clarity Clear; Glucose Negative (Negative); Ketones Negative (Negative); Leukocyte Esterase Negative (Negative); Nitrite Negative (Negative); Specific Gravity 1.015 (1.005-1.025); Urobilinogen 0.2 EU/dL (Up TO 0.2); pH 5.5 (5-8)
[2018-06-01] MEDS: Metoprolol 25 MG TAB PO (23:59)
[2018-06-01] MEDS: Pantoprazole 40 MG TABCR PO (23:59)
[2018-06-02 01:01] LABS: Troponin I < 0.02 ng/mL (0.00-0.06)
[2018-06-02] MEDS: Acetaminophen 325 MG TAB PO (03:43)
[2018-06-02 03:45] VITALS: BP 138/91; PULSE 80; RESP 18; TEMP 36.7; O2SAT 96
[2018-06-02 07:24] LABS: HCT 37.9 % (36.0-46.0); Mean Corp. HGB Concentration 31.7 g/dL (32.0-36.0); Mean Corpuscular Hemoglobin 26.4 pg (27.0-33.0); Mean Corpuscular Volume 83.5 fL (80-95); Mean Platelet Volume 12.5 fL (8.0-11.0); Platelet Count 244 x1000/uL (130-400); RBC 4.54 m/cumm (4.00-5.20); RBC Distribution Width 14.9 % (11.7-14.6); White Blood Cell Count 10.11 k/cumm (4.4-10.8)
[2018-06-02 07:53] LABS: ALT 41 U/L (12-78); AST 24 U/L (15-37); Albumin 2.9 g/dL (3.4-5.0); Alkaline Phosphatase 58 U/L (46-116); Anion Gap 7.1 mmol/L (3-11); BUN 7 mg/dL (7-18); Bilirubin, Total 0.4 mg/dL (0.2-1.0); CO2 27.9 mmol/L (21.0-32.0); CREATININE 0.69 mg/dL (0.55-1.02); Calcium 8.3 mg/dL (8.5-10.1); Chloride 105 mmol/L (98-107); Glucose 129 mg/dL (70-100); NT-proBNP 11 pg/mL; Potassium 3.8 mmol/L (3.5-5.1); Sodium 140 mmol/L (136-145); Total Protein 6.6 g/dL (6.4-8.2)
[2018-06-02 07:55] VITALS: BP 124/86; PULSE 83; RESP 19; TEMP 36.5; O2SAT 98
[2018-06-02 07:57] VITALS: PULSE 95
[2018-06-02] MEDS: metFORMIN 500 MG TAB PO (07:58)
[2018-06-02] MEDS: Enoxaparin 40 MG/0.4 ML SYR SC (07:59)
[2018-06-02] MEDS: Metoprolol 25 MG TAB PO (07:59)
[2018-06-02] MEDS: Albuterol 2.5 MG/3 ML INH SOLN VIAL UPD (08:45)
[2018-06-02 09:15] VITALS: PULSE 83; RESP 1; RESP 16; O2SAT 95
--- NOTE | 2018-06-02 10:17 | W.PM.DS.N ---
Date of service: 06/02/18 Time of Service: 10:18 DS: Diagnosis Discharge Diagnosis (1) Atypical chest pain: Status: Acute (2) Tachycardia: Status: Acute (3) Viral URI with cough: Status: Acute (4) Mild intermittent asthma in adult without complication: Status: Chronic (5) Diabetes mellitus: Status: Chronic Discharge Plan Disposition Patient Disposition: HOME Condition: Good Discharge Details Chief Complaint: Palpitatns Reason For Visit: ATYPICAL CHEST PAIN,SINUS TACHYCARDIA,PALPITATIONS Admit Date/Time: 06/01/18 20:07 Admit Provider: Jesus Lawson Attending Provider: Jesus Lawson Primary Care Provider: Irma Caldwell ED Provider: Otto Carrion Hospital Course Hospital Course: Palpitations with intermittent chest pressure associated with cough Narrative: This is a 37-year-old lady who has had 7 children ranging in ages less than a year to 14 years of age who works at a local nursing facility. She had a pulmonary embolus after a stat for her last child and was on Eliquis for up to 6 months having stopped several weeks ago. She recently began to have upper respiratory symptoms with a cough and mild fever and occasional production of sputum. She does not have the flu with a negative screen upon admission today. She presented to the ED mostly because of her palpitations and thought that her blood pressure was elevated having been taken off her VIJAY inhibitor and ARB because of side effects. She is diabetic fairly well controlled. She also was on sertraline in the past but is off this as well. She does not think that she is under increased stress though she does a very stressful life. She does not exercise routinely. Her appetite is been good and she has had no GI complaints. She did complain of some leg and calf swelling and pain in the ED and CT of the chest with PE protocol did not reveal any gross pulmonary emboli. With her chest discomfort in the ED she did receive 2 nitroglycerin which did make her chest pain on the left side go away but it was not exertional chest pain and was more of a pressure with her coughing. She does have a history of reflux disease and is not on anything more than TUMS. The chest wall was not tender to palpation. Because of her complex of symptoms she was admitted for observation overnight with serial cardiac enzymes to be performed and observation on telemetry. Also she will be started on metoprolol for blood pressure and tachycardia. She is not on a statin and this should be reevaluated with fasting lipids as an outpatient with her PMD. She may require cardiac stress testing before discharge after observation if labs are unrevealing. Her initial labs as stated were not revealing for any acute coronary syndrome, complicated respiratory infection or metabolite abnormality with her TSH also been normal. At the time I saw the patient she was not having chest pressure or palpitations at rest in bed. . She will be observed overnight with telemetry and serial cardiac enzymes with further cardiac evaluation as an outpatient if this observation is unrevealing. She should also consider a statin with close to monitoring of her lipid profile and weight loss with more routine aerobic exercise. 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 She will be placed on a PPI during her hospital stay and metoprolol will be started for heart rate control and blood pressure control since she is allergic to VIJAY inhibitors and ARB's. Today she is feeling better. Denies no chest pain or pressure. Serial troponins were negative, telemetry showed only slight tachycardia when ambulating which she has been recently placed on beta tabitha for and this seems to be controlling rate. With no chest pain or pressure. Ambulatory rate at a brisk pace was 110. Tsh was normal and CTA was negative for PE, or infection. The CT did show a stable thyroid nodule, in which recommendation for follow up as an outpatient was advised. Also recommended that the patient follow up with cardiology if this persists. At this point a stress test and echo can be done on outpatient basis as the patient is young, relatively healthy and has a normal assessment with normal cardiac findings. (1) Atypical chest pain: This is a 37-year-old lady with a several day history of not feeling well with a viral URI and increased cough and the day of admission having palpitations at work thinking that her blood pressure was elevated. When she checked her blood pressure at work it was normal but her heart rate was fast. She reported to the ED for evaluation and during her ED visit she was evaluated for possible recurrent PE with a history of pulmonary emboli after a stat with her last child. She has been off Eliquis for the last several weeks. She ruled out for any acute PE or significant respiratory problem and he did have some chest pressure which responded to nitroglycerin sublingually. She does have chronic reflux and with her discomfort not being typical angina or exertional, it was atypical chest pain which deserved cardiac monitoring with serial cardiac enzymes prior to further outpatient evaluation of her cardiac status. She did have tachycardia in the ED and though she states that she was not anxious, she was not feeling well with low-grade fever recently. She tested negative for flu. She recently also had to stop lisinopril and ARB's because of side effects. She is diabetic and not on statins with history of hypertension as risk factors for CAD. She will be observed overnight with telemetry and serial cardiac enzymes with further cardiac evaluation as an outpatient if this observation is unrevealing. She should also consider a statin with close to monitoring of her lipid profile and weight loss with more routine aerobic exercise. 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 She will be placed on a PPI during her hospital stay and metoprolol will be started for heart rate control and blood pressure control since she is allergic to VIJAY inhibitors and ARB's. (2) Tachycardia: Start metoprolol 25 mg twice a day and monitor on telemetry overnight. Long-term more routine aerobic exercise may be helpful along with stress reduction. (3) Viral URI with cough: Symptomatic treatment with albuterol nebulizers as needed. Tylenol for fever and pain. (4) Mild intermittent asthma in adult without complication: Patient is usually on Pro Air inhaler as needed and will be treated with albuterol nebulizer treatments as needed during this hospital stay. (5) Diabetes mellitus: This problem is well controlled on metformin alone but the patient could do better with lifestyle changes. Follow-up as an outpatient. This does increase her risk of advancing cardiovascular disease. Glucose in hospital 120's Home Meds and New Rx's Prescriptions: New metoprolol tartrate 25 mg Tablet 25 mg PO BID Qty: 30 RF: 0 ibuprofen 800 mg tablet 800 mg PO BID-TID PRN (Reason: pain) Qty: 30 RF: 0 omeprazole 40 mg capsule,delayed release(DR/EC) 40 mg PO DAILY Qty: 30 RF: 0 benzonatate [Tessalon Perles] 100 mg capsule 100 mg PO BID-TID PRN (Reason: cough) Qty: 15 RF: 0 ranitidine HCl [Zantac] 150 mg tablet 150 mg PO QHS Qty: 30 RF: 0 Continued albuterol sulfate [ProAir HFA] 200 PUFF HFA aerosol inhaler 2 puff Inhalation Q4H PRN PRNQty: 1 RF: 0 AeroChamber Plus Z Stat Sm Msk 1 EACH spacer 1 ea Miscellaneous Q4H PRN PRNQty: 1 RF: 0 metformin 500 mg Tablet 500 mg PO BID RF: 0 Discharge Instructions Instructions: Chest Pain (GEN), Palpitations (GEN), Atrial Tachycardia (GEN) Additional Instructions: Follow up with your pcp in one week. CT revealed thyroid nodule that is stable follow up with an ultrasound if you have not already. Follow up with a music education adjunct professor for outpatient stress test and echo if symptoms persist. Take all medications as prescribed. You have been started on a new blood pressure medication. Take your blood pressure twice a day once in the morning once in the evening after sitting down for at least 5 mins. Report any abnormal blood pressures to your PCP. Recommend lifestyle changes and exercise at least 3 times a week. Recommend getting your cholesterol checked. Stand Alone Forms: Nursing Discharge Form Referrals: Irma Caldwell MD [Primary Care Provider] - Activity:: Activity as Tolerated Equipment/Supplies:: blood pressure twice a day Diet:: As Tolerated Discharge Orders Discharge Orders: Discharge Order (Routine); Ordered 06/02/18 Ordered By: Christie Waddell Exam Const General: cooperative, healthy appearing, comfortable and no acute distress Nutritional Appearance: obese Orientation: alert, awake and oriented x3 HENMT Head: normal to inspection Ears: hearing grossly normal bilaterally Eyes General: appearance normal, both eyes and all related structures Pupils: PERRL Neck Neck: normal visual inspection, full ROM and no lymphadenopathy Lymphatic: no lymphadenopathy noted and no lymphedema noted Chest Chest: normal inspection of the chest Resp Effort & Inspection: normal respiratory effort Percussion: percussion normal Cardio Jugular venous pressure: no JVD Rhythm: regular rhythm Heart Sounds: S1 normal and S2 normal GI Inspection: normal to inspection Auscultation: normal bowel sounds Skin General skin exam: no rashes or lesions noted Hair: normal Neuro General: alert, awake and oriented x3 Cognition: normal cognition Speech: speech normal Extrem General: normal to inspection DS: Data Vitals/I&O Vitals and I&O: Vital Signs Temperature 36.5 C 06/02/18 07:55 Temperature Source Tympanic 06/02/18 07:55 Pulse 83 06/02/18 09:15 Pulse Rhythm Regular 06/02/18 08:50 Pulse 118 H 06/01/18 19:30 Respiratory Rate 16 06/02/18 09:15 Respiratory Effort Non-Labored 06/02/18 08:50 Respiratory Depth Normal 06/02/18 08:50 Respiratory Pattern Normal 06/02/18 08:50 Blood Pressure 124/86 06/02/18 07:55 Blood Pressure Mean 84 06/01/18 19:26 Blood Pressure Position Sitting 06/01/18 15:41 Pulse Oximetry 95 06/02/18 09:15 Oxygen Delivery Method Room Air 06/02/18 07:55 Oxygen Flow Rate 0 06/02/18 07:55 Pain Level 7 06/02/18 03:45 Comment 06/02/18 03:45 Intake & Output 06/01/18 06/01/18 06/02/18 11:59 23:59 12:59 Intake Total 1999 540 / 540 Balance 1999 540 / 540 Weight 120.202 kg 120.9 kg Intake: IV 1999 Oral 540 / 540 Other: Urine Appearance Clear Clear Comment Voiding independently, no hat in toilet. Denies any issues. Stool Characteristics Soft Formed Voiding Methods Toilet Completed studies during hospitalization [Text1]: EXAM: CT Angiography Chest With Contrast EXAM DATE/TIME: 06/01/2018 4:24 PM CLINICAL HISTORY: 37 years old, female; Signs and symptoms; Other: Tachycardic, dizzy pe in past, not anticoagulated TECHNIQUE: Axial computed tomographic angiography images of the chest with intravenous contrast using CT angiography protocol. All CT scans at this facility use at least one of these dose optimization techniques: automated exposure control; mA and/or kV adjustment per patient size (includes targeted exams where dose is matched to clinical indication); or iterative reconstruction. Coronal and sagittal reformatted images were created and reviewed. MIP reconstructed images were created and reviewed. CONTRAST: Contrast Material: 85 ml of Omnipaque 350; Contrast Route: IV COMPARISON: CT chest PE CTA 05/10/2018 3:00 PM FINDINGS: Pulmonary arteries: Suboptimal contrast bolus for evaluation of pulmonary emboli. Grossly, no acute emboli noted within the main pulmonary arteries or proximal segmental branches. Distal segmental branches are not confidently evaluated. Aorta: Normal. No aortic aneurysm. No aortic dissection. Thyroid: Stable partially calcified 2 cm right thyroid lobe nodule. Stable noncalcified 1.6 cm hypodense right thyroid lobe nodule. Lungs: No acute interstitial or airspace disease noted in the lungs. Pleural space: Normal. No pneumothorax. No pleural effusion. Heart: Heart is normal in size and configuration. No pericardial thickening or effusion. There is a punctate atherosclerotic calcification noted in the distal LAD. Liver: Diffuse hepatic steatosis is noted. Upper abdomen: Visualized upper abdominal organs otherwise unremarkable. Lymph nodes: Unremarkable. No enlarged lymph nodes. Bones/joints: Unremarkable. No acute fracture. Soft tissues: Unremarkable. IMPRESSION: 1. Suboptimal evaluation for pulmonary emboli, however grossly there is no evidence of pulmonary emboli noted. 2. No other acute thoracic pathology. 3. Stable right thyroid lobe nodules merit further evaluation with ultrasound and a nonemergent setting if not already performed. 4. Other incidental findings as detailed above. Dictated and Authenticated by: Leif Colby MD. Ordering:EDELMIRA Menjivar MD Labs on day of discharge: Labs from last 24 hours 06/02/18 06/02/18 06/02/18 06:30 06:30 00:25 WBC 10.11 D RBC 4.54 Hgb 12.0 Hct 37.9 MCV 83.5 MCH 26.4 L MCHC 31.7 L RDW 14.9 H Plt Count 244 MPV 12.5 H Immature Gran % Neutrophils % Lymphocytes % Monocytes % Eosinophils % Basophils % Absolute Neutrophils Absolute Lymphocytes Absolute Monocytes Absolute Eosinophils Absolute Basophils Differential Comment RBC Morphology Sodium 140 Potassium 3.8 Chloride 105 Carbon Dioxide 27.9 Anion Gap 7.1 BUN 7 Creatinine 0.69 Estimated GFR/1.73 m2 >= 60.00 Glucose 129 H Calcium 8.3 L Magnesium Total Bilirubin 0.4 AST 24 ALT 41 Alkaline Phosphatase 58 Troponin I < 0.02 NT-Pro-B Natriuret Pep 11 Total Protein 6.6 Albumin 2.9 L TSH Urine Color Urine Clarity Urine pH Ur Specific [place] Urine Protein Urine Ketones Urine Blood Urine Nitrite Urine Bilirubin Urine Urobilinogen Ur Leukocyte Esterase Urine Glucose 06/01/18 06/01/18 06/01/18 21:15 20:32 16:10 WBC RBC Hgb Hct MCV MCH MCHC RDW Plt Count MPV Immature Gran % Neutrophils % Lymphocytes % Monocytes % Eosinophils % Basophils % Absolute Neutrophils Absolute Lymphocytes Absolute Monocytes Absolute Eosinophils Absolute Basophils Differential Comment RBC Morphology Sodium Potassium Chloride Carbon Dioxide Anion Gap BUN Creatinine Estimated GFR/1.73 m2 Glucose Calcium Magnesium Total Bilirubin AST ALT Alkaline Phosphatase Troponin I < 0.02 NT-Pro-B Natriuret Pep Total Protein Albumin TSH 2.36 Urine Color Yellow Urine Clarity Clear Urine pH 5.5 Ur Specific [place] 1.015 Urine Protein Negative Urine Ketones Negative Urine Blood Negative Urine Nitrite Negative Urine Bilirubin Negative Urine Urobilinogen 0.2 Ur Leukocyte Esterase Negative Urine Glucose Negative 06/01/18 06/01/18 16:10 16:10 WBC 15.16 H RBC 5.17 Hgb 13.9 Hct 42.7 MCV 82.6 MCH 26.9 L MCHC 32.6 RDW 14.9 H Plt Count 309 MPV 12.6 H Immature Gran % 0.3 Neutrophils % 54.2 Lymphocytes % 34.7 Monocytes % 5.6 Eosinophils % 4.7 Basophils % 0.5 Absolute Neutrophils 8.22 H Absolute Lymphocytes 5.26 H Absolute Monocytes 0.85 H Absolute Eosinophils 0.71 H Absolute Basophils 0.08 Differential Comment Diff reviewed RBC Morphology Normal Sodium 138 Potassium 3.8 Chloride 100 Carbon Dioxide 27.0 Anion Gap 11.0 BUN 10 Creatinine 0.76 Estimated GFR/1.73 m2 >= 60.00 Glucose 122 H Calcium 9.5 Magnesium 2.1 Total Bilirubin 0.3 AST 25 ALT 46 Alkaline Phosphatase 73 Troponin I < 0.02 NT-Pro-B Natriuret Pep Total Protein 8.3 H Albumin 3.7 TSH Urine Color Urine Clarity Urine pH Ur Specific [place] Urine Protein Urine Ketones Urine Blood Urine Nitrite Urine Bilirubin Urine Urobilinogen Ur Leukocyte Esterase Urine Glucose ON LICENSE OF [facility] Medical History Pulmonary embolism (Chronic) Type 2 diabetes mellitus (Chronic) Social History Smoking and Tabacco status: Never
[2018-06-02 11:40] VITALS: BP 127/86; PULSE 89; RESP 20; TEMP 36.5; O2SAT 99
[2018-06-02 12:55] VITALS: PULSE 92
== END 2018-06-02 13:12 | disposition home or self-care (01) ==
LOC: ER 19:26 → MS 21:29
PROVIDERS: Admitting Provider Family Medicine; Emergency Provider Student in an Organized Health Care Education/Training Program; PCP Family Medicine; Visit Provider Internal Medicine
DX: R07.89 Other chest pain (principal); R00.0 Tachycardia, unspecified; R00.2 Palpitations; J06.9 Acute upper respiratory infection, unspecified; B34.9 Viral infection, unspecified; J45.20 Mild intermittent asthma, uncomplicated; R60.0 Localized edema; E11.9 Type 2 diabetes mellitus without complications; Z79.84 Long term (current) use of oral hypoglycemic drugs; Z86.711 Personal history of pulmonary embolism
CPT/HCPCS: 36415; 71275; 80053; 85027; 87449; 93005; 96360; 96361; 99220; 99239; 99285; J1650; 81003; 83735; 83880; 84443; 84484; 85025; 93010; 94640; 99217; 99284; G0378; J3490; J7613

== ENCOUNTER 2018-06-17 02:17 | Outpatient (CLI) | payer MEDICAID, SELFPAY ==
--- NOTE | 2018-06-24 10:22 | HOLTER_ITS ---
DATE OF DICTATION: June 24, 2018 HOLTER MONITOR REPORT 48-HOUR STUDY Baseline rhythm sinus. Rare single PAC. A single burst of SVT, 6-beat duration at 159 bpm. Rare single PVC. One couplet. One burst of non-sustained VT, 4-beat duration at 176 bpm. No bradycardia. SYMPTOMS: Chest pain noted once during sinus rhythm 90 bpm, no ST-T wave changes. Average heart rate 90 bpm, range 65-126 bpm. AGUSTINA/jimy D/
== END 2018-06-17 02:37 ==
PROVIDERS: PCP Family Medicine; Visit Provider Family Medicine
DX: R00.2 Palpitations (principal); I47.1 Supraventricular tachycardia
CPT/HCPCS: 93225

== ENCOUNTER 2018-06-21 14:34 | Outpatient (CLI) | payer MEDICAID, SELFPAY | END 2018-06-21 14:54 | PROVIDERS: PCP Family Medicine; Visit Provider Family Medicine | DX: R00.2 Palpitations (principal); I47.1 Supraventricular tachycardia | CPT/HCPCS: 93226 ==

== ENCOUNTER 2018-06-27 00:23 | Outpatient (CLI) | payer MEDICAID, SELFPAY ==
--- NOTE | 2018-06-27 07:30 | MERGE_ITS ---
*[facility]* *[facility]* [address] [place] [address] Date of study: 06/27/2018 Transthoracic Echocardiography M-mode, complete 2D, complete spectral Doppler, and color Doppler *STUDY CONCLUSIONS* Summary: 1. Left ventricle: The cavity size was normal. Wall thickness was normal. Systolic function was normal. The estimated ejection fraction was 55-60%. Wall motion was normal; there were no regional wall motion abnormalities. 2. Right ventricle: The cavity size was normal. Systolic function was normal. *PATIENT PRESENTATION* Height: 180.3cm ((71in) ) S/D Pressure: Weight: 120.2kg ((264.4lb) ) BSA: 2.5m^2 Test start time: 07:40 AM. Test stop time: 08:40 AM. ORDERING Irma Caldwell REFERRING Irma Caldwell PERFORMING Unknown PERFORMING [facility] DBA RT Gabby (Blaine)(MARCIO), BATSHEVA *PROCEDURE DATA* Procedure information: The patient was identified by two identifiers. This study was interpreted by [facility]. Pertinent images and digital data are archived for permanent storage and are available for subsequent review. No prior study was available for comparison. Study status: Routine. Transthoracic echocardiography. M-mode, complete 2D, complete spectral Doppler, and color Doppler. A Transthoracic Echocardiogram was performed. Scanning was performed from the parasternal, apical, subcostal, and suprasternal notch acoustic windows. Images were obtained using an [id number] cardiac ultrasound machine. Image quality was adequate. Study completion: The patient tolerated the procedure well. There were no complications. History: PMH: Recurrent palpitations r00.2 atypical CP. H/o post PE in 2018, sinus tachycardia, chronic cough, recently put on metoprolol. *CARDIAC ANATOMY* Left ventricle: The cavity size was normal. Wall thickness was normal. Systolic function was normal. The estimated ejection fraction was 55-60%. Wall motion was normal; there were no regional wall motion abnormalities. Aortic valve: Probably trileaflet; normal thickness leaflets. Mobility was not restricted. Doppler: Transvalvular velocity was within the normal range. There was no stenosis. There was no significant regurgitation. VTI ratio of LVOT to aortic valve: 0.92. Valve area (VTI): 2.6cm^2. Indexed valve area (VTI): 1cm^2/m^2. Peak velocity ratio of LVOT to aortic valve: 0.7. Valve area (Vmax): 2cm^2. Indexed valve area (Vmax): 0.8cm^2/m^2. Mean velocity ratio of LVOT to aortic valve: 0.66. Valve area (Vmean): 1.8cm^2. Indexed valve area (Vmean): 0.7cm^2/m^2. Mean gradient (S): 3.7mm Hg. Peak gradient (S): 7.5mm Hg. Aorta: Aortic root: The aortic root was normal in size. Ascending aorta: The ascending aorta was normal in size. Mitral valve: Mildly thickened leaflets. Mobility was not restricted. Doppler: Transvalvular velocity was within the normal range. There was no evidence for stenosis. There was trivial regurgitation. Valve area by pressure half-time: 4.7cm^2. Indexed valve area by pressure half-time: 1.9cm^2/m^2. Left atrium: The atrium was normal in size. Right ventricle: The cavity size was normal. Systolic function was normal. Pulmonic valve: Poorly visualized. Doppler: Transvalvular velocity was within the normal range. There was no evidence for stenosis. There was no significant regurgitation. Tricuspid valve: Structurally normal valve. Doppler: Transvalvular velocity was within the normal range. There was no evidence for stenosis. There was trivial regurgitation. Pulmonary artery: Poorly visualized. Systolic pressure could not be accurately estimated. Right atrium: The atrium was normal in size. Pericardium: There was no pericardial effusion. Systemic veins: Inferior vena cava: Not visualized. Baseline ECG: Tachycardia. Measurements Left ventricle Value Reference LV ID, ED, PLAX 4.8 cm 3.5 - 6.0 LV ID, ES, PLAX 3.2 cm 2.1 - 4.0 LV PW thickness, ED, PLAX 0.9 cm LV end-diastolic volume, 1-p A2C 87 ml LV ejection fraction, 1-p A2C 52 % LV end-diastolic volume, 1-p A4C 86 ml LV ejection fraction, 1-p A4C 52 % LV e', lateral 0.144 m/sec LV E/e', lateral 5 LV e', medial 0.09 m/sec LV E/e', medial 8 LV e', average 0.117 m/sec LV E/e', average 6 Ventricular septum Value Reference IVS thickness, ED, PLAX 1.1 cm LVOT Value Reference LVOT ID, A-P 1.9 cm LVOT area 2.8 cm^2 LVOT peak velocity, S 0.96 m/sec LVOT mean velocity, S 0.58 m/sec LVOT VTI, S 17.5 cm LVOT peak gradient, S 3.7 mm Hg LVOT mean gradient, S 1.7 mm Hg Stroke volume (SV), LVOT DP 49 ml Stroke index (SV/bsa), LVOT DP 20 ml/m^2 Aortic valve Value Reference Aortic valve peak velocity, S 1.4 m/sec Aortic valve mean velocity, S 0.88 m/sec Aortic valve VTI, S 19.0 cm Aortic mean gradient, S 3.7 mm Hg Aortic peak gradient, S 7.5 mm Hg VTI ratio, LVOT/AV 0.92 Aortic valve area, VTI 2.6 cm^2 Velocity ratio, peak, LVOT/AV 0.7 Aortic valve area, peak velocity 2 cm^2 Velocity ratio, mean, LVOT/AV 0.66 Aortic valve area, mean velocity 1.8 cm^2 Aortic valve area/bsa, mean velocity 0.7 cm^2/m^2 Aorta Value Reference Aortic root ID, ED 2.7 cm Ascending aorta ID, A-P, S 3.1 cm Left atrium Value Reference LA ID, A-P, ES 3.5 cm LA ID/bsa, A-P 1.4 cm/m^2 <=2.2 LA area, ES, A4C 16.9 cm^2 8.8 - 23.4 LA area, ES, A2C 11 cm^2 LA volume/bsa, ES, 1-p A4C 21 ml/m^2 LA volume, ES, 2-p 32 ml LA volume/bsa, ES, 2-p 13 ml/m^2 LA/aortic root ratio 1.3 Mitral valve Value Reference Mitral E-wave peak velocity 0.69 m/sec Mitral A-wave peak velocity 0.76 m/sec Mitral deceleration time 161 ms 150 - 230 Mitral pressure half-time 47 ms Mitral E/A ratio, peak 0.91 Mitral valve area, PHT, DP 4.7 cm^2 Pulmonary veins Value Reference Pulmonary vein peak velocity, S 0.47 m/sec Pulmonary vein peak velocity, D 0.37 m/sec Pulmonary vein velocity ratio, peak, 1.27 S/D Right atrium Value Reference RA area, ES, A4C 12.5 cm^2 8.3 - 19.5 Legend: (L) and (H) vladimir values outside specified reference range. I have personally reviewed the images and have reviewed and edited the reported findings. Electronically signed by Claudia Moncada 06/27/2018 09:27
== END 2018-06-27 00:43 ==
PROVIDERS: PCP Family Medicine; Visit Provider Family Medicine
DX: R00.2 Palpitations (principal); R07.89 Other chest pain; R00.0 Tachycardia, unspecified; Z86.711 Personal history of pulmonary embolism
CPT/HCPCS: 93306

== ENCOUNTER 2018-07-12 00:28 | Outpatient (CLI) | payer MEDICAID, SELFPAY ==
--- NOTE | 2018-07-12 13:00 | ETT_ITS ---
*[facility]* *[facility]* [address] [place] [address] Stress Electrocardiography Caden protocol Date of study: 07/12/2018 *PATIENT PRESENTATION* Height: 180.3cm (71in) Blood Pressure: Weight: 120kg (264lb) BSA: 2.5m^2 Referring physician: Claudia Moncada Ordering physician: Irma Caldwell Impressions: Normal study after maximal exercise. Summary: 1. Stress: The target heart rate was achieved. Indication: R00.2. History: REASON FOR TESTING: PATIENT REPORTS SHE HAS HAD PALPITATIONS FOR APPROXIMATELY 2 MONTHS NOW. SHE PRESENTED TO THE ER ON 06/01/18 WITH INTERMITTENT LEFT SIDED CHEST PRESSURE ASSOCIATED WITH COUGH AND PALPITATIONS. IN THE ER PATIENT WAS GIVEN NITROGLYCERINE X2 WHICH RELEIVED HER CHEST DISCOMFORT. HER TROPONIN LEVELS WERE NEGATIVE X2. SHE WAS STARTED ON METOPROLOL APPROXIMATELY 1 MONTH AGO AND HAS NOT HAD ANY SYMPTOMS SINCE. PATIENT DENIES CHEST PAIN/PALPITATIONS UPON ARRIVAL TO TESTING TODAY. SIGNIFICANT PAST MEDICAL HISTORY: PULMONARY EMBOLISM. SMOKING STATUS: NEVER. 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 Risk factors: Family history of coronary artery disease. Hypertension. Diabetes mellitus. Dyslipidemia. Cholesterol: 226mg/dl. HDL: 59mg/dl. LDL: 140mg/dl. Triglycerides: 98mg/dl. ALLERGIES: LISINOPRIL, LOSARTAN. MEDICATIONS: PROAIR HFA 2 PUFFS PRN, METFORMIN 500 MG BID, IBUPROFEN 800 MG PRN, OMEPRAZOLE 40 MG DAILY, METOPROLOL 50 MG BID. Protocol: Caden protocol. Baseline ECG: SINUS TACHYCARDIA. HR 105 BPM. Stress protocol: + +---+ + !Stage !HR !BP (mmHg) ! + +---+ + !Baseline supine !105!150/82 (105) ! + +---+ + !Baseline standing !126!152/80 (104) ! + +---+ + !Stage I; 1.7mph, 10degrees; 3 min !160!164/90 (115) ! + +---+ + !Stage II; 2.5mph, 12degrees; 3 min!182!180/100 (127)! + +---+ + !Peak stress !185! ! + +---+ + !Recovery; 1 min !145!220/90 (133) ! + +---+ + !Recovery; 3 min !117!190/84 (119) ! + +---+ + !Recovery; 6 min !115!170/84 (113) ! + +---+ + !Recovery; 9 min !109!160/96 (117) ! + +---+ + * Stress results: STRESS TEST ENDED IN 5 MINUTES 32 SECONDS DUE TO FATIGUE AND SHORTNESS OF BREATH. HEART RATE TACHYCARDIC AT BASELINE, NORMAL RESPONSE TO EXERCISE. BLOOD PRESSURE HYPERTENSIVE AT BASELINE, HYPERTENSIVE RESPONSE TO EXERCISE. MAX HEART RATE:185. 102 % OF TARGET HEART RATE ACHIEVED. MET'S: 7.05. NO ECTOPY. NO ANGINA. NO SIGNIFICANT ST SEGMENT CHANGES. AVERAGE FUNCTIONAL CAPACITY. Maximal heart rate during stress was 185bpm (103% of maximal predicted heart rate). The maximal predicted heart rate was 180bpm. The target heart rate was achieved. The rate-pressure product for the peak heart rate and blood pressure was 63887vf Hg/min. Study data: Claudia Moncada MD supervised and was readily available during the procedure. This study was interpreted by [facility]. Study status: Routine. Consent: The risks, benefits, and alternatives to the procedure were explained to the patient and informed consent was obtained. Procedure: Initial setup. A baseline ECG was recorded. Surface ECG leads and manual cuff blood pressure measurements were monitored. Heart sounds: Normal. Lung sounds: Normal. Treadmill exercise testing was performed using the Caden protocol. Study completion: The patient tolerated the procedure well and was discharged from the lab. Discharge: The patient left the laboratory in stable condition. Birthdate: Patient birthdate: 1980. Sex: Gender: female. Study date: Study date: 07/12/2018. Study time: 00:01 AM. Signature Documentation: The Stress ECG portion of this study was interpreted by Claudia Moncada MD. Electronically signed by Claudia Moncada 07/12/2018 14:57
== END 2018-07-12 00:48 ==
PROVIDERS: PCP Family Medicine; Visit Provider Family Medicine
DX: R00.2 Palpitations (principal); R07.89 Other chest pain; I10 Essential (primary) hypertension; E11.9 Type 2 diabetes mellitus without complications; E78.5 Hyperlipidemia, unspecified; Z82.49 Family history of ischemic heart disease and other diseases of the circulatory system
CPT/HCPCS: 93017

== ENCOUNTER 2019-05-22 12:00 | Outpatient (REF) | payer MEDICAID, SELFPAY ==
[2019-05-22 19:26] LABS: Calculated LDL 135 mg/dL (<100); Cholesterol 217 mg/dL (<200); HDL Cholesterol 48 mg/dL (40-60); TSH (W/Ref FT4) 3.45 uIU/mL (0.36-3.74); Triglyceride 170 mg/dL (<150)
== END 2019-05-22 12:20 ==
LOC: NCHCN 12:00
PROVIDERS: PCP Family Medicine; Visit Provider Family Medicine
DX: E04.1 Nontoxic single thyroid nodule (principal); I10 Essential (primary) hypertension
CPT/HCPCS: 80061; 84443

== ENCOUNTER 2019-06-23 12:02 | Outpatient (CLI) | payer MEDICAID, SELFPAY ==
[2019-06-25 15:26] LABS: SARS-CoV-2 RNA Undetected (Undetected); SARS-CoV-2 Specimen Source Nasopharynx
== END 2019-06-23 12:22 ==
PROVIDERS: PCP Family Medicine; Visit Provider Family Medicine
DX: Z20.828 Contact with and (suspected) exposure to other viral communicable diseases (principal); R50.9 Fever, unspecified; R05 Cough
CPT/HCPCS: U0003

== ENCOUNTER 2019-09-15 13:41 | Outpatient (REF) | payer MEDICAID, SELFPAY ==
[2019-09-15 16:27] LABS: Anion Gap 10.7 mmol/L (3-11); BUN 11 mg/dL (7-18); CO2 24.3 mmol/L (21.0-32.0); CREATININE 0.77 mg/dL (0.55-1.02); Calcium 8.8 mg/dL (8.5-10.1); Chloride 105 mmol/L (98-107); Glucose 145 mg/dL (74-106); Potassium 4.2 mmol/L (3.5-5.1); Sodium 140 mmol/L (136-145)
[2019-09-15 16:39] LABS: Hemoglobin A1C 7.3 % (3.8-5.6)
== END 2019-09-15 14:01 ==
LOC: NCHCN 13:41
PROVIDERS: PCP Family Medicine; Visit Provider Family Medicine
DX: I10 Essential (primary) hypertension (principal); E11.9 Type 2 diabetes mellitus without complications
CPT/HCPCS: 80048; 83036

== ENCOUNTER 2019-09-25 12:26 | Outpatient (REF) | payer MEDICAID, SELFPAY ==
[2019-09-25 12:40] LABS: COMMENT (LAB VIEW ONLY) 136.44 mg/dL; Microalb ug/mg Crea 22.2 ug/mg Cr
== END 2019-09-25 12:46 ==
LOC: NCHCN 12:26
PROVIDERS: PCP Family Medicine; Visit Provider Family Medicine
DX: E11.9 Type 2 diabetes mellitus without complications (principal)
CPT/HCPCS: 82043; 82570

== ENCOUNTER 2020-04-21 16:09 | Outpatient (REF) | payer MEDICAID, SELFPAY ==
[2020-04-21 14:05] LABS: HCT 36.5 % (36.0-46.0); HGB 10.8 g/dL (11.2-15.7); MCH 22.7 pg (27.0-33.0); MCHC 29.6 % (32.0-36.0); MCV 76.8 fL (80-95); MPV 13.7 fL (8.0-11.0); Platelet Count 283 10^3/uL (130-400); RBC 4.75 10^6/uL (3.93-5.22); RDW 15.9 % (11.7-14.6); RDW-SD 44.6 fL; WBC 9.91 10^3/uL (4.4-10.8)
[2020-04-21 14:33] LABS: TSH (W/Ref FT4) 1.88 uIU/mL (0.36-3.74)
[2020-04-21 15:03] LABS: Ferritin 13 ng/mL (8-252)
== END 2020-04-21 16:29 ==
LOC: NCHCN 16:09
PROVIDERS: PCP Family Medicine; Visit Provider Family Medicine
DX: N92.0 Excessive and frequent menstruation with regular cycle (principal)
CPT/HCPCS: 85027; 82728; 84443

== ENCOUNTER 2020-04-30 16:08 | Outpatient (REF) | payer MEDICAID, SELFPAY ==
[2020-05-02 12:44] LABS: COVID-19 RT-PCR UVMMC Result Negative (Negative)
== END 2020-04-30 16:09 | disposition home or self-care (01) ==
LOC: LBN 16:08
PROVIDERS: PCP Family Medicine; Visit Provider Nurse Practitioner Adult Health
DX: J10.1 Influenza due to other identified influenza virus with other respiratory manifestations (principal); Z20.822 Contact with and (suspected) exposure to COVID-19
CPT/HCPCS: 87449; U0003

== ENCOUNTER 2020-09-13 11:28 | Outpatient (REF) | payer MEDICAID, SELFPAY ==
[2020-09-13 15:37] LABS: HCT 35.5 % (36.0-46.0); HGB 10.3 g/dL (11.2-15.7); MCH 22.3 pg (27.0-33.0); MCV 76.8 fL (80-95); Platelet Count 314 10^3/uL (130-400); RBC 4.62 10^6/uL (3.93-5.22); RDW 16.7 % (11.7-14.6); RDW-SD 46.3 fL; WBC 11.27 10^3/uL (4.4-10.8)
[2020-09-13 16:25] LABS: BUN 7 mg/dL (7-18); CREATININE 0.7 mg/dL (0.55-1.02); Calcium 9.2 mg/dL (8.5-10.1); Chloride 105 mmol/L (98-107); Ferritin 10 ng/mL (8-252); Glucose 149 mg/dL (74-106); Potassium 4.5 mmol/L (3.5-5.1); Sodium 142 mmol/L (136-145)
== END 2020-09-13 11:29 | disposition home or self-care (01) ==
LOC: NCHCN 11:28
PROVIDERS: PCP Family Medicine; Visit Provider Family Medicine
DX: D50.9 Iron deficiency anemia, unspecified (principal); E11.9 Type 2 diabetes mellitus without complications; N92.0 Excessive and frequent menstruation with regular cycle; I10 Essential (primary) hypertension
CPT/HCPCS: 80048; 85027; 82728; 83036

== ENCOUNTER 2020-09-21 07:15 | Outpatient (REF) | payer MEDICAID, SELFPAY ==
--- OUTSIDE RECORDS SUMMARY | 2020-09-21 07:17 | XMS_ITS ---
:1980 Author Care Team Providers Name Role Phone [facility] Primary Care Provider [phone] ELIE NOVA Primary Care Provider [phone] Allergies Code Code System Name Reaction Severity Status Onset 87852 RxNorm Lisinopril ? ? Active ? Medications Name Status Start Date Stop Date ? ? Advair Diskus 500 mcg-50 mcg/dose powder for inhalation Complete d ? 10/14/2018 Inhale 1 puff twice a day by inhalation route. amlodipine 10 mg tablet Completed ? 10/15/19 amoxicillin 875 mg-potassium Completed ? clavulanate 125 mg tablet Arnuity Ellipta 100 mcg/actuation powder for inhalation Active ? Not available Inhale 1 puff every day by inhalation route at bedtime. azithromycin 250 mg tablet Completed ? 10/14 benzonatate 100 mg capsule Completed ? 10/14 Breo Ellipta 200 mcg-25 mcg/dose powder for inhalation Active ? Not available Inhale 1 puff every day by inhalation route. cetirizine 10 mg tablet Completed ? 10/15/19 19 Eliquis 5 mg tablet Completed ? 10/14/2018 Flovent HFA 110 mcg/actuation aerosol Completed ? 10/14/2018 inhaler Guaiatussin AC 10 mg-100 mg/5 mL oral Completed ? 10/14/2018 liquid hydroxyzine HCl 25 mg tablet Completed ? IBU 800 mg tablet Active ? Not available levofloxacin 500 mg tablet Completed ? 10/14 lisinopril 10 mg tablet Completed ? 10/15/19 19 metformin 500 mg tablet Active ? Not avai lable Take 1 tablet twice a day by oral route. metoprolol tartrate 100 mg tablet Active ? Not available 1 tablet twice daily metoprolol tartrate 50 mg tablet Completed ? 10/14/2018 Take 1 tablet twice a day by oral route. omeprazole 40 mg capsule,delayed release Active ? Not available Take 1 capsule every day by oral route. prednisone 20 mg tablet Completed ? 10/15/19 19 ProAir HFA 90 mcg/actuation aerosol inhaler Active ? Not available INHALE 1-2 PUFFS (180 MCG) BY INHALATION ROUTE EVERY 4-6 HOURS NEEDED ProChamber Active ? Not available ranitidine 150 mg tablet Completed ? 019 sertraline 25 mg tablet Completed ? 10/15/19 19 sertraline 50 mg tablet Completed ? 10/15/19 19 Problems Name Status Onset Date Source ? Thyroid Nodule Active 10/07/2018 ? Obesity Active 10/07/2018 ? Essential Hypertension Active 10/07/2018 ? Bronchitis Active 10/07/2018 ? Gastroesophageal Reflux Disease Active 10/07/2018 ? Non-alcoholic Fatty Liver Active 10/07/2018 ? Depression Active 10/07/2018 ? Palpitations Active 10/07/2018 ? Cough Active 10/07/2018 ? Prediabetes Active 10/07/2018 ? Procedures None recorded. Results Lab Results None recorded. Past Encounters None recorded. Social History Tobacco Smoking Status Never Smoker Vaccine List Vaccine Type influenza, injectable, quadrivalent 01/06/2018 Tdap 08/07/2008 Plan of Care Reminders Provider Appointments None ? ? recorded. Lab None ? ? recorded. Referral None ? ? recorded. Procedures None ? ? recorded. Surgeries None ? ? recorded. Imaging None ? ? recorded. Vitals Height Weight BMI Blood Pressure 181.61 cm 120 kg 36.4 kg/m2 128/80 mm[Hg]
== END 2020-09-21 07:16 | disposition home or self-care (01) ==
LOC: RT 07:15
PROVIDERS: PCP Family Medicine; Visit Provider Nurse Practitioner Family
DX: Z02.89 Encounter for other administrative examinations (principal)
CPT/HCPCS: 94010

== ENCOUNTER 2020-09-23 14:23 | Outpatient (REF) | payer MEDICAID, SELFPAY ==
[2020-09-23 14:22] LABS: COMMENT (LAB VIEW ONLY) 154.22 mg/dL; Microalb ug/mg Crea 12.2 ug/mg Cr
== END 2020-09-23 14:24 | disposition home or self-care (01) ==
LOC: NCHCN 14:23
PROVIDERS: PCP Family Medicine; Visit Provider Family Medicine
DX: E11.9 Type 2 diabetes mellitus without complications (principal)
CPT/HCPCS: 82043; 82570

== ENCOUNTER 2020-12-13 14:52 | Outpatient (REF) | payer MEDICAID, SELFPAY ==
[2020-12-13 14:35] LABS: HCT 38.3 % (36.0-46.0); HGB 11.5 g/dL (11.2-15.7); MCH 23.5 pg (27.0-33.0); MCV 78.3 fL (80-95); Platelet Count 292 10^3/uL (130-400); RBC 4.89 10^6/uL (3.93-5.22); WBC 11.14 10^3/uL (4.4-10.8)
[2020-12-13 14:56] LABS: Ferritin 9 ng/mL (8-252)
[2020-12-13 15:15] LABS: Hemoglobin A1C 6.5 % (<5.7)
== END 2020-12-13 14:53 | disposition home or self-care (01) ==
LOC: NCHCN 14:52
PROVIDERS: PCP Family Medicine; Visit Provider Family Medicine
DX: D50.9 Iron deficiency anemia, unspecified (principal); N92.0 Excessive and frequent menstruation with regular cycle; E11.9 Type 2 diabetes mellitus without complications; I10 Essential (primary) hypertension
CPT/HCPCS: 85027; 82728; 83036

== ENCOUNTER 2021-03-21 15:57 | Outpatient (REF) | payer MEDICAID, SELFPAY ==
[2021-03-21 19:04] LABS: HCT 41.5 % (36.0-46.0); HGB 12.4 g/dL (11.2-15.7); MCH 25.1 pg (27.0-33.0); MCHC 29.9 % (32.0-36.0); MPV 13.9 fL (8.0-11.0); Platelet Count 309 10^3/uL (130-400); RBC 4.94 10^6/uL (3.93-5.22); RDW 14.9 % (11.7-14.6); RDW-SD 45.6 fL; WBC 12.85 10^3/uL (4.4-10.8)
[2021-03-21 19:26] LABS: Ferritin 10 ng/mL (8-252)
[2021-03-21 19:34] LABS: Hemoglobin A1C 6.3 % (<5.7)
[2021-03-23 12:54] LABS: IgA 160 mg/dL (85-499); Interpretation (See Note); Tissue Transglutaminase IgA <1.2 U/mL (<4.0)
== END 2021-03-21 15:58 | disposition home or self-care (01) ==
LOC: NCHCN 15:57
PROVIDERS: PCP Family Medicine; Visit Provider Family Medicine
DX: D50.9 Iron deficiency anemia, unspecified (principal); E11.9 Type 2 diabetes mellitus without complications
CPT/HCPCS: 82784; 83516; 85027; 82728; 83036

== ENCOUNTER 2021-06-24 08:37 | Outpatient (REF) | payer MEDICAID, SELFPAY ==
[2021-06-24 15:57] LABS: HCT 40.7 % (36.0-46.0); HGB 12.7 g/dL (11.2-15.7); MCH 26.2 pg (27.0-33.0); MCHC 31.2 % (32.0-36.0); MCV 83.9 fL (80-95); MPV 14.2 fL (8.0-11.0); Platelet Count 254 10^3/uL (130-400); RBC 4.85 10^6/uL (3.93-5.22); RDW 14.6 % (11.7-14.6); RDW-SD 44.7 fL; WBC 10.04 10^3/uL (4.4-10.8)
[2021-06-24 16:18] LABS: Ferritin 17 ng/mL (8-252); Hemoglobin A1C 6.1 % (<5.7)
== END 2021-06-24 08:38 | disposition home or self-care (01) ==
LOC: NCHCN 08:37
PROVIDERS: PCP Family Medicine; Visit Provider Family Medicine
DX: D50.9 Iron deficiency anemia, unspecified (principal); E11.9 Type 2 diabetes mellitus without complications
CPT/HCPCS: 85027; 82728; 83036

== ENCOUNTER 2021-10-12 11:40 | Outpatient (REF) | payer MEDICAID, SELFPAY ==
[2021-10-12 11:14] LABS: COMMENT (LAB VIEW ONLY) 285.32 mg/dL; Microalb ug/mg Crea 16.6 ug/mg Cr
== END 2021-10-12 11:41 | disposition home or self-care (01) ==
LOC: NCHCN 11:40
PROVIDERS: PCP Family Medicine; Visit Provider Family Medicine
DX: E11.9 Type 2 diabetes mellitus without complications (principal)
CPT/HCPCS: 82043; 82570

== ENCOUNTER 2021-11-22 11:05 | Outpatient (REF) | payer MEDICAID, SELFPAY | END 2021-11-22 11:06 | disposition home or self-care (01) | LOC: LBN 11:05 | PROVIDERS: PCP Family Medicine | DX: J02.9 Acute pharyngitis, unspecified (principal); Z20.822 Contact with and (suspected) exposure to COVID-19 | CPT/HCPCS: 87635 ==

== ENCOUNTER 2021-11-29 16:50 | Outpatient (REF) | payer MEDICAID, SELFPAY | END 2021-11-29 16:51 | disposition home or self-care (01) | LOC: LBN 16:50 | PROVIDERS: PCP Family Medicine | DX: Z20.822 Contact with and (suspected) exposure to COVID-19 (principal); J45.909 Unspecified asthma, uncomplicated | CPT/HCPCS: 87635 ==

== ENCOUNTER 2022-02-23 16:01 | Outpatient (REF) | payer MEDICAID, SELFPAY ==
[2022-02-23 16:12] LABS: HCT 41.4 % (36.0-46.0); HGB 13.5 g/dL (11.2-15.7); MCH 27.3 pg (27.0-33.0); MCHC 32.6 % (32.0-36.0); MCV 84 fL (80-95); Platelet Count 300 10^3/uL (130-400); RBC 4.95 10^6/uL (3.93-5.22); RDW 13.5 % (11.7-14.6); RDW-SD 41.2 fL; WBC 11.79 10^3/uL (4.4-10.8)
[2022-02-23 16:35] LABS: Hemoglobin A1C 5.7 % (<5.7)
[2022-02-23 16:48] LABS: BUN 10 mg/dL (7-18); CREATININE 0.8 mg/dL (0.55-1.02); Calcium 9.2 mg/dL (8.5-10.1); Chloride 101 mmol/L (98-107); Ferritin 15 ng/mL (8-252); Glucose 149 mg/dL (74-106); Potassium 3.8 mmol/L (3.5-5.1); Sodium 138 mmol/L (136-145)
[2022-02-27 10:05] LABS: Hepatitis C Ab w Rflx HCV PCR Negative (Negative)
== END 2022-02-23 16:02 | disposition home or self-care (01) ==
LOC: NCHCN 16:01
PROVIDERS: PCP Family Medicine; Visit Provider Family Medicine
DX: I10 Essential (primary) hypertension (principal); D50.9 Iron deficiency anemia, unspecified; Z11.59 Encounter for screening for other viral diseases; E11.9 Type 2 diabetes mellitus without complications
CPT/HCPCS: 80048; 85027; 86803; 82728; 83036

== ENCOUNTER 2022-07-31 15:15 | Outpatient (REF) | payer MEDICAID, SELFPAY ==
[2022-07-31 16:52] LABS: Bilirubin Negative (Negative); Blood Negative (Negative); Clarity Cloudy (Clear); Glucose Negative (Negative); Ketones Negative (Negative); Leukocyte Esterase Large (Negative); Nitrite Negative (Negative); Specific Gravity >= 1.030 (1.005-1.025); Urobilinogen 0.2 mg/dL (Up to 0.2); pH 5.5 (5-8)
[2022-07-31 17:02] LABS: Abs Immature Grans 0.03 10^3/uL (0.0-0.06); Absolute Basophil Count 0.09 10^3/uL (0.0-0.2); Absolute Lymphocyte Count 4.17 10^3/uL (1.2-3.4); Absolute Monocyte Count 0.73 10^3/uL (0.1-0.8); Absolute Neutrophil Count 6.61 10^3/uL (1.2-6.7); Basophils % 0.8; Eosinophils % 1.7; HCT 41.8 % (36.0-46.0); HGB 13.7 g/dL (11.2-15.7); Immature Grans % 0.3; Lymphocytes % 35.2; MCH 27.3 pg (27.0-33.0); MCHC 32.8 % (32.0-36.0); MCV 83 fL (80-95); MPV 13.6 fL (8.0-11.0); Monocytes % 6.2; Neutrophils % 55.8; Platelet Count 284 10^3/uL (130-400); RBC 5.02 10^6/uL (3.93-5.22); RDW 13.7 % (11.7-14.6); RDW-SD 41.4 fL; WBC 11.85 10^3/uL (4.4-10.8)
[2022-07-31 17:10] LABS: Bacteria Many HPF (Negative); C & S Indicated? No/Sq. Contamination; Casts Negative LPF (Negative); Crystals Negative HPF (Negative); Epithelial Cells Many HPF (Negative); Mucus Negative (Negative); RBC 0-2 HPF (0-2); WBC 20-50 HPF (0-5)
[2022-07-31 17:50] LABS: ALT 27 U/L (14-59); AST 15 U/L (15-37); Albumin 3.7 g/dL (3.4-5.0); Alkaline Phosphatase 56 U/L (46-116); Anion Gap 10.3 mmol/L (3-11); BUN 10 mg/dL (7-18); Bilirubin, Total 0.3 mg/dL (0.2-1.0); CO2 27.7 mmol/L (21.0-32.0); CREATININE 0.7 mg/dL (0.55-1.02); Chloride 101 mmol/L (98-107); Ferritin 10 ng/mL (8-252); Glucose 85 mg/dL (74-106); Lipase 42 U/L (16-77); Potassium 3.9 mmol/L (3.5-5.1); Sodium 139 mmol/L (136-145); TSH (W/Ref FT4) 2.65 uIU/mL (0.36-3.74); Total Protein 8.2 g/dL (6.4-8.2)
== END 2022-07-31 15:16 | disposition home or self-care (01) ==
LOC: NCHCN 15:15
PROVIDERS: PCP Family Medicine; Visit Provider Family Medicine
DX: D50.9 Iron deficiency anemia, unspecified (principal); R53.83 Other fatigue; F32.89 Other specified depressive episodes; R10.32 Left lower quadrant pain; R82.998 Other abnormal findings in urine
CPT/HCPCS: 80053; 83690; 81003; 81015; 82728; 84443; 85025

== ENCOUNTER 2022-07-31 15:20 | Outpatient (CLI) | payer MEDICAID, SELFPAY ==
--- NOTE | 2022-07-31 13:00 | DI.CT_ITS ---
Exam(s) CT RENAL COLIC WO EXAM: CT RENAL COLIC WO CLINICAL HISTORY: LT FLANK PAIN, R10.9. TECHNIQUE: Imaging Protocol: Axial computed tomography images with coronal and sagittal reformatted images were created and reviewed. CONTRAST MATERIAL: Noncontrast COMPARISON: CT CT chest PE CTA from 06/01/2018 FINDINGS: ABDOMEN: Lung Bases: Minimal left basilar scarring. Liver: Mild to moderate hepatic steatosis, improved from prior. The liver is not as enlarged as on p rior. No measurable mass. Gallbladder and biliary tract: Status post cholecystectomy. No biliary dilatation. Pancreas: Normal density, no calcifications or inflammatory process. Spleen: Normal. Kidneys: Normal size, contour and axis. No radiodense stones or obstructive uropathy. No masses seen. Adrenal glands: No masses seen. Abdominal Aorta: Abdominal portion non-dilated. Soft tissues: Unremarkable. PELVIS: Bladder: Symmetric distention, no gross wall thickening. No evidence of stones.No visible mass. Bowel: No obstruction or bowel wall thickening. Reproductive: Peritoneal cavity: No ascites, collection or mesenteric inflammatory response. Bones: Unremarkable for age.. IMPRESSION: Status post cholecystectomy. [id number] hepatic steatosis. No biliary dilatation. No evidence of urinary tract calculi or hydronephrosis. RADIATION DOSE DELIVERED: 1,183.48mGy.cm Total DLP DATA REPOSITORY: All CT scans at this facility are submitted to the National Radiology Data Registry (NRDR) Dose Index Registry (DIR) with the [employer] (ACR). RADIATION OPTIMIZATION: All CT scans at this facility use at least one of these dose optimization te chniques: automated exposure control; mA and/or kV adjustment per patient size (includes targeted exa ms where dose is matched to clinical indication); or iterative reconstruction.
== END 2022-07-31 15:40 ==
LOC: DI 15:21
PROVIDERS: PCP Family Medicine; Visit Provider Family Medicine
DX: R10.9 Unspecified abdominal pain (principal); K76.0 Fatty (change of) liver, not elsewhere classified
CPT/HCPCS: 74176

== ENCOUNTER 2022-08-01 18:02 | Outpatient (REF) | payer MEDICAID, SELFPAY ==
[2022-08-01 20:41] LABS: Bilirubin Negative (Negative); Blood Negative (Negative); Clarity Clear (Clear); Glucose Negative (Negative); Ketones Negative (Negative); Leukocyte Esterase Trace (Negative); Nitrite Negative (Negative); Specific Gravity >= 1.030 (1.005-1.025); Urobilinogen 0.2 mg/dL (Up to 0.2); pH 5.5 (5-8)
[2022-08-01 20:56] LABS: Bacteria Rare HPF (Negative); Crystals Negative HPF (Negative); Epithelial Cells Few HPF (Negative); Mucus Trace (Negative); RBC Negative HPF (0-2); WBC 0-2 HPF (0-5)
[2022-08-01 20:57] LABS: C & S Indicated? Yes; Casts 3-5 Hyaline LPF (Negative)
== END 2022-08-01 18:03 | disposition home or self-care (01) ==
LOC: LBN 18:02
PROVIDERS: PCP Family Medicine; Visit Provider Nurse Practitioner Family
DX: R30.0 Dysuria (principal); R39.89 Other symptoms and signs involving the genitourinary system; N39.0 Urinary tract infection, site not specified
CPT/HCPCS: 81003; 81015; 87086

== ENCOUNTER 2022-08-28 16:01 | Outpatient (REF) | payer MEDICAID, SELFPAY ==
[2022-08-28 17:00] LABS: COMMENT (LAB VIEW ONLY) 239.79 mg/dL; Microalb ug/mg Crea 13.8 ug/mg Cr
== END 2022-08-28 16:02 | disposition home or self-care (01) ==
LOC: NCHCN 16:01
PROVIDERS: PCP Family Medicine; Visit Provider Family Medicine
DX: E11.9 Type 2 diabetes mellitus without complications (principal)
CPT/HCPCS: 82043; 82570

== ENCOUNTER 2023-01-15 13:36 | Outpatient (REF) | payer MEDICAID, SELFPAY ==
[2023-01-15 17:28] LABS: HCT 43.9 % (36.0-46.0); HGB 14.5 g/dL (11.2-15.7); MCV 85 fL (80-95); Platelet Count 274 10^3/uL (130-400); RBC 5.18 10^6/uL (3.93-5.22); RDW 13.5 % (11.7-14.6); WBC 10.17 10^3/uL (4.4-10.8)
[2023-01-15 18:01] LABS: ALT 18 U/L (14-59); Anion Gap 9.8 mmol/L (3-11); BUN 8 mg/dL (7-18); CO2 28.2 mmol/L (21.0-32.0); CREATININE 0.7 mg/dL (0.55-1.02); Calcium 9.6 mg/dL (8.5-10.1); Calculated LDL 77 mg/dL (<100); Chloride 103 mmol/L (98-107); Cholesterol 164 mg/dL (<200); Ferritin 12 ng/mL (8-252); Glucose 92 mg/dL (74-106); HDL Cholesterol 66 mg/dL (40-60); Potassium 4.3 mmol/L (3.5-5.1); Sodium 141 mmol/L (136-145); Triglyceride 107 mg/dL (<150)
== END 2023-01-15 13:37 | disposition home or self-care (01) ==
LOC: NCHCN 13:36
PROVIDERS: PCP Family Medicine; Visit Provider Family Medicine
DX: I10 Essential (primary) hypertension (principal); D50.9 Iron deficiency anemia, unspecified; K76.0 Fatty (change of) liver, not elsewhere classified
CPT/HCPCS: 80048; 80061; 85027; 82728; 84460

== ENCOUNTER 2023-04-06 16:38 | Outpatient (REF) | payer MEDICAID, SELFPAY ==
[2023-04-06 17:31] LABS: HCT 38.7 % (36.0-46.0); HGB 12.6 g/dL (11.2-15.7); MCH 26.9 pg (27.0-33.0); MCHC 32.6 % (32.0-36.0); MCV 83 fL (80-95); MPV 13.9 fL (8.0-11.0); Platelet Count 268 10^3/uL (130-400); RBC 4.69 10^6/uL (3.93-5.22); RDW 13.2 % (11.7-14.6); RDW-SD 39.1 fL; WBC 7.62 10^3/uL (4.4-10.8)
[2023-04-06 17:39] LABS: Hemoglobin A1C 5.5 % (<5.7)
== END 2023-04-06 16:39 | disposition home or self-care (01) ==
LOC: NCHCN 16:38
PROVIDERS: PCP Family Medicine; Visit Provider Family Medicine
DX: E11.9 Type 2 diabetes mellitus without complications (principal); N92.0 Excessive and frequent menstruation with regular cycle
CPT/HCPCS: 85027; 83036

== ENCOUNTER 2023-11-08 16:13 | Outpatient (REF) | payer MEDICAID, SELFPAY ==
[2023-11-08 19:23] LABS: HCT 41.2 % (36.0-46.0); HGB 12.7 g/dL (11.2-15.7); MCH 25.7 pg (27.0-33.0); MCHC 30.8 % (32.0-36.0); MCV 83 fL (80-95); Platelet Count 269 10^3/uL (130-400); RBC 4.95 10^6/uL (3.93-5.22); RDW 18.2 % (11.7-14.6); RDW-SD 54.6 fL; WBC 8.82 10^3/uL (4.4-10.8)
[2023-11-08 20:17] LABS: Anion Gap 8.6 mmol/L (3-11); BUN 6 mg/dL (7-18); CO2 29.4 mmol/L (21.0-32.0); CREATININE 0.8 mg/dL (0.55-1.02); Calcium 9.3 mg/dL (8.5-10.1); Chloride 104 mmol/L (98-107); Estimated GFR 92.54 (mL/min/1.73m2); Ferritin 18 ng/mL (8-252); Glucose 129 mg/dL (74-106); Potassium 4.3 mmol/L (3.5-5.1); Sodium 142 mmol/L (136-145)
[2023-11-08 20:36] LABS: Hemoglobin A1C 5.4 % (<5.7)
== END 2023-11-08 16:14 | disposition home or self-care (01) ==
LOC: NCHCN 16:13
PROVIDERS: PCP Family Medicine; Visit Provider Family Medicine
DX: I10 Essential (primary) hypertension (principal); E11.9 Type 2 diabetes mellitus without complications
CPT/HCPCS: 80048; 85027; 82728; 83036

== ENCOUNTER 2023-11-09 16:39 | Outpatient (REF) | payer MEDICAID, SELFPAY ==
[2023-11-09 16:51] LABS: Microalb ug/mg Crea 9.3 ug/mg Cr
== END 2023-11-09 16:40 | disposition home or self-care (01) ==
LOC: NCHCN 16:39
PROVIDERS: PCP Family Medicine; Visit Provider Family Medicine
DX: E11.9 Type 2 diabetes mellitus without complications (principal)
CPT/HCPCS: 82043; 82570

== ENCOUNTER 2024-10-17 07:39 | Day surgery (SDC) | payer MEDICAID, SELFPAY ==
--- NOTE | 2024-10-16 16:17 | W.PM.DSUDISC ---
Date of service: 10/17/24 Discharge Plan Disposition Patient Disposition: Home Condition: Good Discharge Details Reason For Visit: Screening colonoscopy Attending Provider: Con Blanco Primary Care Provider: Irma Caldwell Home Meds and New Rx's Prescriptions: Continued bupropion HCl [Wellbutrin SR] 200 mg tablet sustained-release 12 hr 200 mg PO BID metoprolol tartrate 25 mg tablet 100 mg PO BID hydrochlorothiazide 12.5 mg capsule 12.5 mg PO DAILY norethindrone (contraceptive) [Deblitane] 0.35 mg tablet 0.35 mg PO DAILY omeprazole 20 mg capsule,delayed release(DR/EC) 20 mg PO DAILY Ozempic 2 mg/dose (8 mg/3 mL) pen injector 2 mg subcut QWEEK ibuprofen 800 mg tablet 800 mg PO BID-TID PRN (Reason: pain) Qty: 30 0RF atorvastatin [Lipitor] 20 mg tablet 20 mg PO DAILY albuterol sulfate [ProAir HFA] 200 PUFF HFA aerosol inhaler 2 puff Inhalation Q4H PRN PRNQty: 1 0RF Rx Instructions: Use two puffs every 4 hrs as needed for cough. (DME) AeroChamber Plus Z Stat Sm Msk 1 EACH spacer 1 ea Miscellaneous Q4H PRN Qty: 1 0RF metformin 500 mg Tablet 500 mg PO BID Discontinued bisacodyl [Dulcolax (bisacodyl)] 5 mg tablet,delayed release (DR/EC) 5 mg PO ONCE Qty: 4 0RF Rx Instructions: Take per colonoscopy instructions provided by ordering providers office polyethylene glycol 3350 17 gram/dose powder 17 g PO ONCE Qty: 238 0RF Rx Instructions: Take per colonoscopy instructions provided by ordering providers office Discharge Instructions Additional Instructions: Christie, was good to meet you today, and hope you feel well after the procedure. Things went very smoothly. Your prep was outstanding, and I could see everything fine. You do have some internal hemorrhoids, which have been known to trigger the Cologuard test. Otherwise, I do not see any signs of tumors, polyps, or anything worrisome. There is not a great consensus on follow-up colon cancer screening for patients with a positive Cologuard and a negative colonoscopy. My general recommendation nowadays is to either repeat the Cologuard in 3 years, or have another colonoscopy at 5 years. Certainly, if anything changes in the interim, following up with your primary care physician is also very appropriate. 1. If tolerated, consume a soft, low fiber diet for 1-2 days. 2[address] Do not drive, drink alcohol, operate machinery, make critical decisions, or do activities that require coordination or balance for 24 hours. 3. Because air was put into your colon during the procedure, expelling air from your rectum (passing gas or farting) is normal. 4. You may not have a bowel movement for 1-3 days because of the colonoscopy prep. This is normal. 5. Go directly to the emergency room if you notice any of the following: Develop chills (warm to touch), or if you have a thermometer and your temperature is above 101 Difficulty breathing or difficultly swallowing Persistent vomiting Severe abdominal pain, other than gas cramps Severe chest pain Black, tarry stools Any bleeding ? exceeding one tablespoon 6. Call your physician if the site where your intravenous was started becomes red, swollen, painful, and warm to touch. 7. Your physician has reviewed your pre-procedure medications. Please continue to take those medications as previously ordered. You will be given specific information/education regarding any changes to your medications before leaving. Activity:: Activity as Tolerated Diet:: As Tolerated Discharge Orders Discharge Orders: Discharge Order (Routine); Ordered 10/16/24 Ordered By: Con Blanco DS: Diagnosis Discharge Diagnosis (1) Encounter for screening colonoscopy: Status: Acute Asessment and Plan: Negative screening colonoscopy; recommend follow-up Cologuard in 3 years, or colonoscopy in 5 years
--- NOTE | 2024-10-16 16:19 | W.COLOREPORT ---
Date of service: 10/17/24 Time of Service: 09:11 Colonoscopy Report Date of procedure: 10/17/24 Pre-op diagnosis general: Positive Cologuard test Post-op diagnosis procedure note: other (Negative screening colonoscopy) Procedure: Colonoscopy Surgeon: Con Blanco Anesthesia Type: General:No Airway Estimated blood loss (mL): 0 Pathology: none sent Complications: None Disposition: same day Indications: Christie is a 44-year-old woman with positive Cologuard test who needs a follow-up screening colonoscopy Prep: Miralax/Dulcolax Procedure Start Time: 08:48 Procedure End Time: 09:03 Retraction Time: 10 Findings: Negative screening colonoscopy Procedure Description: After the induction of anesthesia, and with the patient in left lateral decubitus position, I began by performing an external anorectal exam.? Perineum and skin were normal, as was the anal verge.? There was no evidence of external hemorrhoids.? Next, I performed a digital rectal exam.? I did not appreciate any abnormal findings.? Next, I advanced a colonoscope into the rectal vault.? I performed retroflexion.? There are internal hemorrhoids.? Using insufflation, I then advanced the colonoscope beyond the rectal folds and into the sigmoid colon before advancing towards the cecum.? The quality of the prep was excellent.? The scope was noted to be in the cecum by identification of the ileocecal valve and appendiceal orifice.? I then began withdrawing the colonoscope using repeated irrigation as necessary for full evaluation of the colonic mucosa. ?Once the scope was withdrawn to the level of the rectum, great care was taken to examine portions of the rectal folds. So no signs of tumors, polyps, or any other worrisome pathology.? Finally, the scope was withdrawn and the patient was brought to the same-day surgery recovery unit as the anesthetic wore off. ?The findings and instructions were shared with the patient prior to discharge. Gilbert Bowel Prep Gilbert Bowel Prep Right Colon: 3 Left Colon: 3 Transverse Colon: 3 Total Score: 9
[2024-10-17 07:50] VITALS: BP 133/82; PULSE 92; RESP 16; TEMP 36.3; O2SAT 99
[2024-10-17] MEDS: Lactated Ringers 1,000 ML 80 ML IV (08:10)
--- NOTE | 2024-10-17 08:44 | W.ANESPRE ---
General Info Date of Service Date Performed: 10/17/24 Height: 5 ft 10 in Weight: 90 kg Body Mass Index (BMI): 28.4 Surgical Procedure: Operation Date: 10/17/24 09:05 Proposed Procedure Side Surgeon sanaz Blanco MD Meds Allergies and Home Medications Allergies Allergy/AdvReac Type Severity Reaction Status Date / Time lisinopril Allergy Hives Unverified 10/17/24 08:02 losartan Allergy Hives Unverified 10/17/24 08:02 Home Medication ?Medication ?Instructions ?Recorded albuterol sulfate 90 mcg/actuation 2 puff inhalation Q4H PRN PRN #1 04/15/16 aerosol inhaler (ProAir HFA) inh inhalational spacing device ##1 04/15/16 (AeroChamber Plus Z Stat Small Mask) metformin 500 mg tablet 500 mg PO BID 05/10/18 ibuprofen 800 mg tablet 800 mg PO BID-TID PRN pain #30 tabs 06/02/18 hydrochlorothiazide 12.5 mg capsule 12.5 mg PO DAILY 07/30/24 norethindrone (contraceptive) 0.35 0.35 mg PO DAILY 07/30/24 mg tablet (Deblitane) omeprazole 20 mg capsule,delayed 20 mg PO DAILY 07/30/24 release semaglutide 2 mg/dose (8 mg/3 mL) 2 mg subcut QWEEK 07/30/24 subcutaneous pen injector (Ozempic) bupropion HCl 200 mg tablet,12 hr 200 mg PO BID 10/02/24 sustained-release (Wellbutrin SR) metoprolol tartrate 25 mg tablet 100 mg PO BID 10/02/24 atorvastatin 20 mg tablet (Lipitor) 20 mg PO DAILY 10/15/24 Current Visit Medications: Current Medications Generic Name Dose Route Start Last Admin Trade Name Freq PRN Reason Stop Dose Admin Ringer's Solution 1,000 mls @ 80 mls/hr 10/17/24 06:00 10/17/24 08:10 IV 10/17/24 23:59 80 mls/hr INFUSION CALE Administration IV Miscellaneous Supplies 1 each 10/17/24 06:00 Iv Access IV 10/17/24 23:59 DIRECTED CALE Ondansetron HCl 4 mg 10/16/24 16:20 Ondansetron 4 Mg/2 Ml Vial IVP 11/15/24 16:19 Q4H PRN PRN Nausea / Vomiting Sodium Chloride 0 ml 10/17/24 06:00 Normal Saline Flush 10 Ml Syr IV 10/17/24 23:59 PRN PRN Sodium Chloride 0 ml 10/17/24 06:00 Normal Saline 10 Ml Vial IJ 10/17/24 23:59 DIRECTED PRN Sterile Water 0 ml 10/17/24 06:00 Water,Injection,Sterile 10 Ml Vial IJ 10/17/24 23:59 DIRECTED PRN PFSH Active Problems Active Problems: Problem Status Onset Code Encounter for screening colonoscopy Acute Z12.11 Asthma Chronic J45.909 Diabetes mellitus Chronic E11.9 Mild intermittent asthma in adult without complication Chronic J45.20 Tachycardia Acute R00.0 Viral URI with cough Acute J06.9, B97.89 Atypical chest pain Acute R07.89 Medical History Medical History Type 2 diabetes mellitus Pulmonary embolism (~05/13/23) Surgical History Surgical History (Updated 10/17/24 @ 08:03 by Macy Crain, RN) Hx of cholecystectomy 2013 H/O tubal ligation H/O section Tobacco Smoking/Tobacco Use Status: Never Alcohol Alcohol Intake: former Substance Use Substance use: Never Vital Signs and Lab Results Vital Signs Most Recent Vital Signs in EMR: Most Recent Vital Signs Temp Pulse Resp BP Pulse Ox 36.3 C L 92 H 16 133/82 99 10/17/24 07:50 10/17/24 07:50 10/17/24 07:50 10/17/24 07:50 10/17/24 07:50 Imaging and Studies Imaging and Studies Study information below may be from another EMR and interpreted by another provider. Please see original notes in EMR for more complete details. Stress Test Summary: Reviewed Echocardiogram Summary: Reviewed Anesthesia Assessment and Plan Anesthesia History Personal History: No History of Anesthesia Complications Family History: No Family History of Anesthesia Complications Exercise Tolerance Exercise Tolerance: Metabolic Equivalents>4 Pertinent Negatives Pertinent Negatives: No Major Cardiovascular Symptoms or Complaints and No History of CVA/TIA Cardiac & Pulmonary Exam Cardiac Exam: Normal S1/S2 Heart Sounds Pulmonary Exam: Clear Bilateral Breath Sounds Implantable Cardiac Device Does patient have a Pacemaker or an ICD?: No Airway Exam Known Difficult Airway: No Mallampati Class: 2 Mouth Opening: Normal (> 3cm) Thyromental Distance: Greater than 3 cm Neck Range of Motion: Full ROM Neck Circumference: Normal Teeth Condition: Normal Dentition (some missing teeth) and Removable Dentures/Plates Upper (left at home ) ASA Classification ASA Score: ASA 2 Emergency Case?: No NPO Status NPO Status: NPO Clears >2 hours, Solids >8 hours Status Status: Pt. refuses testing, she was counseled on anesthesia risks Anesthesia Plan Resuscitation Status: Full Code Anesthesia Technique: General Anesthesia Airway Planned: Natural Airway Monitors Used: Standard Monitors
[2024-10-17 08:49] VITALS: BMI 28.4
[2024-10-17 09:06] VITALS: BP 137/75; PULSE 92; RESP 18; TEMP 36.3; O2SAT 98
--- NOTE | 2024-10-17 09:30 | W.ANESPOSTOP ---
Postoperative Evaluation Date, Time and Location Date Performed: 10/17/24 Time Performed: 09:30 Patient Location: Day Surgery Unit Vital Signs Most Recent Imported Vital Signs: Most Recent Vital Signs Temp Pulse Resp BP Pulse Ox 36.3 C L 92 H 18 137/75 98 10/17/24 09:06 10/17/24 09:06 10/17/24 09:06 10/17/24 09:06 10/17/24 09:06 Pain Score Most Recent Pain Score: Most Recent Pain Score Pain Level 0 10/17/24 09:06 Assessment Mental Status: Awake (Alert & Oriented to Patient Baseline) Airway and Respiratory Function: Patent airway with normal (patient baseline) respiratory exam Cardiovascular Function: Hemodynamically Stable Hydration Status: Adequately Hydrated Nausea & Vomiting: No Nausea or Vomiting Pain: Pt. Denies Any Pain Peripheral Nerve Block: Patient did not receive a nerve block
[2024-10-17 09:35] VITALS: BP 109/74; PULSE 89; RESP 12; TEMP 36.3; O2SAT 98
== END 2024-10-17 10:25 | disposition home or self-care (01) ==
LOC: SUR 07:40
PROVIDERS: PCP Family Medicine; Visit Provider Surgery
PROC: 0DJD8ZZ Inspection of Lower Intestinal Tract, Via Natural or Artificial Opening Endoscopic (ICD-10-PCS; CPT 45378; principal; 2024-10-17 09:00)
DX: Z12.11 Encounter for screening for malignant neoplasm of colon (principal); R19.5 Other fecal abnormalities
CPT/HCPCS: 45378; J2250; J2704

== ENCOUNTER 2025-02-20 16:03 | Outpatient (REF) | payer MEDICAID, SELFPAY ==
[2025-02-20 21:48] LABS: Microalb ug/mg Crea 5.1 ug/mg Cr
== END 2025-02-20 16:04 | disposition home or self-care (01) ==
LOC: NCHCN 16:03
PROVIDERS: PCP Family Medicine; Visit Provider Family Medicine
DX: E11.9 Type 2 diabetes mellitus without complications (principal)
CPT/HCPCS: 82043; 82570